=== PATIENT | female | born 1950 | race Caucasian/White ===

== ENCOUNTER 2017-03-02 12:42 | Observation (INO) ==
--- NOTE | 2017-03-02 12:59 | Emergency Department Note ---
Disposition Clinical Impression: Generalized seizure Disposition: Admitted As Inpatient Condition: Fair Referrals: Nick Celaya MD [Primary Care Provider] - Forms: ED Satisfaction Letter Time of Disposition: 15:22 (mirza sahu [facility] request of Dr celaya whom I spoke too) Seizure HPI - General Chief Complaint: ED Seizure Stated Complaint: seizure Time Seen by Provider: 03/02/17 12:44 Source: patient Mode of arrival: ambulatory Limitations: no limitations Nursing Notes Reviewed: Yes Vital Signs Reviewed: Yes - History of Present Illness HPI Narrative: History of a stroke last year who developed seizures post stroke who is currently under the management of Dr. 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 Description of Episode: loss of consciousness, tonic-clonic movement (very subtle) -: second(s) Witnessed: yes - by bystander, yes - by other (er staf) Associated trauma secondary to event: No Seizure History: known seizure disorder, compliant with medication Place: home Possible Precipitating Event: lack of sleep, stress Associated symptoms: Denies: chest pain, confusion, cough, diaphoresis, fever/ chills, loss of appetite, malaise, rash, shortness of breath, syncope, weakness Pain Severity: mild Pain Scale: 1 Pain Description: dull Treatments prior to arrival: none - Related Data Home Medications Medication Instructions Recorded Confirmed Albuterol Sulfate [Proair 2 puff IH Q4H PRN 10/24/15 10/13/16 Respiclick] Cholecalciferol (Vitamin D3) 1,000 unit PO DAILY 10/24/15 10/13/16 [Vitamin D3] Insulin ASPART [Novolog Flexpen] 5 unit SQ BID 10/24/15 10/13/16 Insulin DETEMIR [Levemir Flextouch] 28 unit SQ BID 10/24/15 10/13/16 Oxaprozin [Daypro] 600 mg PO DAILY 10/24/15 10/13/16 Sennosides [Senna] 8.6 mg PO DAILY 10/24/15 10/13/16 BuPROPion XL (24 HR) [Wellbutrin 300 mg PO DAILY 01/26/16 10/13/16 XL] Losartan/Hydrochlorothiazide 1 each PO DAILY 01/26/16 10/13/16 [Hyzaar 100-25 Tablet] Tizanidine HCl 4 mg PO HS 01/26/16 10/13/16 Atorvastatin [Lipitor] 40 mg PO HS 10/13/16 10/13/16 Famotidine [Pepcid] 20 mg PO DAILY 10/13/16 10/13/16 Gabapentin [Neurontin] 400 mg PO TID 10/13/16 10/13/16 Insulin ASPART [Novolog Flexpen] 12 - 18 unit SQ QPM 10/13/16 10/13/16 Linagliptin [Tradjenta] 5 mg PO DAILY 10/13/16 10/13/16 Meloxicam [Meloxicam] 15 mg PO DAILY 10/13/16 10/13/16 Oxybutynin [Ditropan] 5 mg PO BID 10/13/16 10/13/16 Tamsulosin HCl [Flomax] 0.4 mg PO DAILY 10/13/16 10/13/16 LevETIRAcetam [Keppra] 500 mg PO BID 03/02/17 03/02/17 Warfarin [Coumadin] 2 mg PO AD 03/02/17 03/02/17 Previous Rx's Medication Instructions Recorded diazePAM [Valium] 5 mg PO BID #10 tablet 03/10/16 Allergies Allergy/AdvReac Type Severity Reaction Status Date / Time Androgenic Anabolic Steroid Allergy Hives Verified 10/13/16 07:59 aripiprazole [From Abilify] Allergy Hives Verified 10/13/16 07:59 azithromycin [From Zithromax] Allergy Hives Verified 10/13/16 07:59 bisacodyl Allergy Hives Verified 10/13/16 07:59 cephalexin Allergy Hives Verified 10/13/16 07:59 ciprofloxacin [From Cipro] Allergy Hives Verified 10/13/16 07:59 codeine Allergy Hives Verified 10/13/16 07:59 mirtazapine [From Remeron] Allergy Hives Verified 10/13/16 07:59 nitrofurantoin Allergy Hives Verified 10/13/16 07:59 [From Macrobid] penicillamine Allergy Hives Verified 10/13/16 07:59 propranolol [From Inderal LA] Allergy Hives Verified 10/13/16 07:59 Sulfa (Sulfonamide Allergy Hives Verified 10/13/16 07:59 Antibiotics) tramadol [From Ultram] Allergy Hives Verified 10/13/16 07:59 trimethoprim Allergy Hives Verified 10/13/16 07:59 All systems ED: reviewed and negative except as stated. Review of Systems: As Per HPI Constitutional: Reports: weakness. Denies: fever, chills Eyes: Denies: eye pain, eye discharge ENT ED: Denies: ear pain, throat pain, dental pain Cardiovascular: Denies: chest pain, palpitations Respiratory: Denies: cough, dyspnea, wheezes Gastrointestinal: Denies: abdominal pain Genitourinary: Denies: urgency, dysuria Musculoskeletal: Denies: back pain, neck pain Integumentary: Denies: rash, abrasion, lesions Neurological: Reports: headache, confusion. Denies: weakness, numbness Psychiatric: Denies: anxiety, depression Endocrine: Denies: fatigue Hematological/Lymphatic: Denies: easy bleeding Past Medical History - Past Medical History Attestation: Yes The following information was validated with the patient. 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 - Social History Smoking Status: Never smoker Smokeless Tobacco Status: No Alcohol use: Reports: none Drug use: Reports: none Physical Exam - General Limitations: no limitations General appearance: alert, in no apparent distress, lethargic - Head Head exam: atraumatic, normocephalic, normal inspection - Eye Eye exam: Present: normal appearance, PERRL, EOMI - ENT ENT exam: normal exam, normal oropharynx, mucous membranes moist, normal external ear exam - Neck Neck exam: Present: normal inspection, full ROM, trachea midline - Chest Chest inspection: Present: normal inspection, symmetric chest wall rise - Respiratory Respiratory exam: Present: normal lung sounds bilaterally - Cardiovascular Cardiovascular exam: Present: regular rate, normal rhythm, normal heart sounds - Abdominal Exam Abdominal exam: Present: soft, Non-Tender, normal bowel sounds. Absent: mass, pulsatile mass - Extremities Exam Extremities exam: Present: normal inspection, full ROM, normal capillary refill. Absent: tenderness, pedal edema, joint swelling, calf tenderness - Expanded Lower Extremity Exam Neurovascular/Tendon exam: Present: normal capillary refill, normal fine/light touch Gait: not tested/not observed - Back Exam Back exam: Present: normal inspection, full ROM. Absent: muscle spasm - Neurological Exam Neurological exam: Present: alert, oriented X3, CN II-XII intact - Psychiatric Psychiatric exam: Present: normal affect, normal mood - Skin Skin exam: Present: warm, dry, intact, normal color Course Course Narrative: Patient seen and examined while waiting for laboratory drawl to be done patient has a fine seizure-like activity with some flank tremoring. Extremities patient was postictal for about patient resting comfortably at this time - Reevaluation(s) Reevaluation #1: She has been resting comfortably since her one little seizure activity here in the ER after all results were obtained I spoke with Dr. Celaya he has asked that we keep her overnight make a modification within her medications patient be admitted transferred to [facility] patient stable at time of transfer Vital Signs Temperature 97.9 F 03/02/17 12:44 Pulse Rate 66 03/02/17 12:44 Respiratory Rate 16 03/02/17 12:44 Blood Pressure 139/71 03/02/17 12:44 O2 Sat by Pulse Oximetry 99 03/02/17 12:44 Temperature 97.9 F 03/02/17 12:44 Pulse Rate 73 03/02/17 15:17 Respiratory Rate 18 03/02/17 15:17 Blood Pressure 164/69 03/02/17 15:17 O2 Sat by Pulse Oximetry 95 03/02/17 15:17 Oxygen Delivery Oxygen Delivery Room Air Seizure - Differential Diagnosis Likely: generalized seizure - Medical Records Medical records reviewed: Yes I reviewed the patient's medical records. - Lab Data Lab results reviewed: Yes I reviewed the patient's lab results. Result diagrams: 03/02/17 13:30 03/02/17 13:30 Lab Results 03/02/17 03/02/17 03/02/17 Range/Units 13:30 13:30 13:30 WBC 7.8 (4.3-11.1) K/mcL RBC 5.14 H (3.82-4.97) M/mcL Hgb 14.2 (11.5-15.4) g/dL Hct 42.6 (35.3-44.9) % MCV 82.9 L (83.0-100.0) fL MCH 27.6 L (28.0-33.3) pg MCHC 33.3 (31.6-35.5) g/dL RDW 13.0 (11.5-14.5) % Plt Count 247 (140-400) K/mcL MPV 10.5 (9.4-12.4) fL Immature Gran % 0.1 (0-4) % Seg Neutrophils % 68.4 % Lymphocytes % 23.8 % Monocytes % 5.4 % Eosinophils % 1.7 % Basophils % 0.6 % Neutrophils # 5.3 (1.6-8.9) K/mcL Lymphocytes # 1.9 (0.6-4.6) K/mcL Monocytes # 0.4 (0.0-1.3) K/mcL Eosinophils # 0.1 (0.0-0.6) K/mcL Basophils # 0.1 (0.0-0.2) K/mcL PT 32.5 H (9.4-12.1) Seconds INR 2.9 APTT 45.8 H (26.0-36.0) Seconds Sodium 142 (136-145) mEq/L Potassium 3.6 (3.5-4.5) mEq/L Chloride 103 (98-109) mEq/L Carbon Dioxide 26 (19-29) mEq/L BUN 14 (7-20) mg/dL Creatinine 0.73 (0.57-1.11) mg/dL Est GFR ( Amer) > 60 (> 60) Est GFR (Non-Af Amer) > 60 (> 60) BUN/Creatinine Ratio 19 (6-26) Glucose 151 H (70-99) mg/dL Calculated Osmolality 297 (280-300) Calcium 9.7 (8.6-10.8) mg/dL Troponin I (0-0.03) ng/mL TSH 0.560 (0.350-4.840) mcIU/mL Urine Color (Yellow) Urine Clarity (Clear) Urine pH (5.0-8.0) pH Units Ur Specific [place] (1.010-1.025) Urine Protein (Neg-Trace) mg/dL Urine Glucose (UA) (Normal) mg/dL Urine Ketones (Negative) mg/dL Urine Blood (Negative) Urine Nitrite (Negative) Urine Bilirubin (Negative) Urine Urobilinogen (Normal) mg/dL Ur Leukocyte Esterase (Negative) Urine Microscopic WBC (0-3) per hpf Ur Squamous Epith Cells (None-Few) per lpf Urine Bacteria (None-Few) per hpf Urine Mucus (Few) Ur Culture Indicated? (NO) 03/02/17 03/02/17 Range/Units 13:30 13:45 WBC (4.3-11.1) K/mcL RBC (3.82-4.97) M/mcL Hgb (11.5-15.4) g/dL Hct (35.3-44.9) % MCV (83.0-100.0) fL MCH (28.0-33.3) pg MCHC (31.6-35.5) g/dL RDW (11.5-14.5) % Plt Count (140-400) K/mcL MPV (9.4-12.4) fL Immature Gran % (0-4) % Seg Neutrophils % % Lymphocytes % % Monocytes % % Eosinophils % % Basophils % % Neutrophils # (1.6-8.9) K/mcL Lymphocytes # (0.6-4.6) K/mcL Monocytes # (0.0-1.3) K/mcL Eosinophils # (0.0-0.6) K/mcL Basophils # (0.0-0.2) K/mcL PT (9.4-12.1) Seconds INR APTT (26.0-36.0) Seconds Sodium (136-145) mEq/L Potassium (3.5-4.5) mEq/L Chloride (98-109) mEq/L Carbon Dioxide (19-29) mEq/L BUN (7-20) mg/dL Creatinine (0.57-1.11) mg/dL Est GFR ( Amer) (> 60) Est GFR (Non-Af Amer) (> 60) BUN/Creatinine Ratio (6-26) Glucose (70-99) mg/dL Calculated Osmolality (280-300) Calcium (8.6-10.8) mg/dL Troponin I 0.00 (0-0.03) ng/mL TSH (0.350-4.840) mcIU/mL Urine Color Yellow (Yellow) Urine Clarity Clear (Clear) Urine pH 7.0 (5.0-8.0) pH Units Ur Specific [place] 1.020 (1.010-1.025) Urine Protein 30 H (Neg-Trace) mg/dL Urine Glucose (UA) Normal (Normal) mg/dL Urine Ketones Negative (Negative) mg/dL Urine Blood Negative (Negative) Urine Nitrite Negative (Negative) Urine Bilirubin Negative (Negative) Urine Urobilinogen Normal (Normal) mg/dL Ur Leukocyte Esterase Negative (Negative) Urine Microscopic WBC 0-3 (0-3) per hpf Ur Squamous Epith Cells Many H (None-Few) per lpf Urine Bacteria Few (None-Few) per hpf Urine Mucus Few (Few) Ur Culture Indicated? NO (NO) - Radiology Data Radiology results reviewed: Yes I reviewed the patient's radiology results. ITS Impressions Head CT 03/02/17 13:01 IMPRESSION: Remote infarct on the right with surrounding gliosis. Mild patchy small vessel ischemic changes bilaterally No acute abnormality otherwise D/ / Ethan Miller / Ethan Miller Interpreting Provider: Ethan Miller - EKG Data EKG attestation: Yes I reviewed and interpreted this EKG. EKG results narrative: Sinus rhythm first degree AV block rate 63 NV 226 QRS 77 QT 429 axis 20 Critical Care Time Critical Care Time: No
[2017-03-02 13:41] LABS: Basophils # 0.1 K/mcL (0.0-0.2); Basophils % 0.6 %; Eosinophils # 0.1 K/mcL (0.0-0.6); Eosinophils % 1.7 %; Hematocrit 42.6 % (35.3-44.9); Hemoglobin 14.2 g/dL (11.5-15.4); Immature Granulocytes % 0.1 % (0-4); Lymphocytes # 1.9 K/mcL (0.6-4.6); Lymphocytes % 23.8 %; Mean Corpuscular HGB Conc 33.3 g/dL (31.6-35.5); Mean Corpuscular Hemoglobin 27.6 pg (28.0-33.3); Mean Corpuscular Volume 82.9 fL (83.0-100.0); Mean Platelet Volume 10.5 fL (9.4-12.4); Monocytes # 0.4 K/mcL (0.0-1.3); Monocytes % 5.4 %; Neutrophils # 5.3 K/mcL (1.6-8.9); Platelet Count 247 K/mcL (140-400); Red Blood Count 5.14 M/mcL (3.82-4.97); Segmented Neutrophils % 68.4 %
[2017-03-02 13:47] LABS: INR 2.9; Prothrombin Time 32.5 Seconds (9.4-12.1)
[2017-03-02 13:50] LABS: Activated Partial Thrombo Time 45.8 Seconds (26.0-36.0)
[2017-03-02 13:57] LABS: BUN/Creatinine Ratio 19 (6-26); Blood Urea Nitrogen 14 mg/dL (7-20); Calcium 9.7 mg/dL (8.6-10.8); Carbon Dioxide 26 mEq/L (19-29); Chloride 103 mEq/L (98-109); Glucose 151 mg/dL (70-99); Osmolality,Calculated 297 (280-300); Potassium 3.6 mEq/L (3.5-4.5); Sodium 142 mEq/L (136-145); eGFR For African Americans > 60 (> 60); eGFR For Non-African Americans > 60 (> 60)
[2017-03-02 14:05] LABS: Bilirubin,Urine Negative (Negative); Blood,Urine Negative (Negative); Clarity,Urine Clear (Clear); Color,Urine Yellow (Yellow); Glucose,Urine (UA) Normal (Normal); Ketones,Urine Negative (Negative); Leukocyte Esterase,Urine Negative (Negative); Nitrite,Urine Negative (Negative); Protein,Urine 30 mg/dL (Neg-Trace); Urobilinogen,Urine Normal (Normal)
[2017-03-02 14:15] LABS: Bacteria,Urine Few per hpf (None-Few); Mucus,Urine Few (Few); Squamous Epithelial Cell,Urine Many per lpf (None-Few); WBC,Urine 0-3 per hpf (0-3)
[2017-03-02] MEDS ORDERED: levETIRAcetam 250 MG TABLET PO STA (15:25)
[2017-03-02] MEDS ORDERED: Dextrose Gel 15 GM PO PRN ×2 (17:33)
[2017-03-02] MEDS ORDERED: Ondansetron ODT 4 MG TAB.RAPDIS SL PRN (17:33)
[2017-03-02] MEDS ORDERED: Ibuprofen 400 MG TABLET PO PRN (17:33)
[2017-03-02] MEDS ORDERED: Acetaminophen 325 MG TABLET PO PRN (17:33)
[2017-03-02] MEDS ORDERED: levETIRAcetam 250 MG TABLET PO SCH (17:33)
[2017-03-02] MEDS ORDERED: *HR* Dextrose 50 % in Water (Syg) 50 ML SYRINGE IVP PRN (17:33)
[2017-03-02] MEDS ORDERED: Naloxone 0.4 MG/ML INJ IVP PRN (17:33)
[2017-03-02] MEDS ORDERED: D5% in Water 1,000 ML IVC PRN (17:33)
[2017-03-02] MEDS ORDERED: *HR* Warfarin 2 MG TABLET PO ONE (18:24)
[2017-03-02] MEDS: *HR* Warfarin 5 MG TABLET PO SCH ×2 (18:26→19:01)
[2017-03-02] MEDS: Insulin LISPRO 300 UNITS/3 ML VIAL SQ SCH (19:00)
[2017-03-02] MEDS ORDERED: tiZANidine 4 MG TABLET PO SCH (21:00)
[2017-03-02] MEDS ORDERED: Insulin LISPRO 300 UNITS/3 ML VIAL SQ SCH ×2 (21:00)
[2017-03-02] MEDS ORDERED: INSULIN DETEMIR 28 UNIT SQ SCH (21:00)
[2017-03-02] MEDS: levETIRAcetam 250 MG TABLET PO SCH (21:16)
[2017-03-02] MEDS: diazePAM 5 MG TABLET PO SCH (21:16)
[2017-03-02] MEDS: Insulin DETEMIR 100 UNIT/ML X5UNITS SQ SCH (21:18)
[2017-03-02] MEDS: Gabapentin 400 MG CAPSULE PO SCH (21:20)
[2017-03-03] MEDS: levETIRAcetam 250 MG TABLET PO SCH (05:54)
[2017-03-03 06:11] LABS: Basophils # 0.1 K/mcL (0.0-0.2); Basophils % 0.8 %; Eosinophils # 0.2 K/mcL (0.0-0.6); Eosinophils % 3.7 %; Hematocrit 41.8 % (35.3-44.9); Hemoglobin 13.7 g/dL (11.5-15.4); Immature Granulocytes % 0.3 % (0-4); Lymphocytes # 2.4 K/mcL (0.6-4.6); Lymphocytes % 39.8 %; Mean Corpuscular HGB Conc 32.8 g/dL (31.6-35.5); Mean Corpuscular Hemoglobin 27.5 pg (28.0-33.3); Mean Corpuscular Volume 83.8 fL (83.0-100.0); Mean Platelet Volume 10.6 fL (9.4-12.4); Monocytes # 0.5 K/mcL (0.0-1.3); Monocytes % 8.1 %; Neutrophils # 2.8 K/mcL (1.6-8.9); Platelet Count 228 K/mcL (140-400); Red Blood Count 4.99 M/mcL (3.82-4.97); Red Cell Distribution Width 13.2 % (11.5-14.5); Segmented Neutrophils % 47.3 %
[2017-03-03 06:27] LABS: BUN/Creatinine Ratio 23 (6-26); Blood Urea Nitrogen 16 mg/dL (7-20); Calcium 9.6 mg/dL (8.6-10.8); Carbon Dioxide 25 mEq/L (19-29); Chloride 107 mEq/L (98-109); Glucose 69 mg/dL (70-99); Osmolality,Calculated 298 (280-300); Potassium 3.6 mEq/L (3.5-4.5); Sodium 144 mEq/L (136-145); eGFR For African Americans > 60 (> 60); eGFR For Non-African Americans > 60 (> 60)
[2017-03-03] MEDS: Insulin LISPRO 300 UNITS/3 ML VIAL SQ SCH ×2 (07:35→12:26)
--- NOTE | 2017-03-03 08:08 | Electrocardiograph Report ---
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
[2017-03-03] MEDS ORDERED: Famotidine 20 MG TABLET PO SCH (09:00)
[2017-03-03] MEDS ORDERED: Sennosides 8.6 MG TABLET PO SCH (09:00)
[2017-03-03] MEDS ORDERED: Cholecalciferol (D-3) 1,000 UNIT TABLET PO SCH (09:00)
[2017-03-03] MEDS ORDERED: BuPROPion XL (24 HR) 150 MG TABLET PO SCH (09:00)
[2017-03-03] MEDS ORDERED: Losartan/HCTZ 50-12.5 TABLET PO SCH (09:00)
[2017-03-03] MEDS ORDERED: (Linagliptin [Tradjenta] 5 MG) PO SCH (09:00)
[2017-03-03] MEDS: Gabapentin 400 MG CAPSULE PO SCH (09:32)
[2017-03-03] MEDS: diazePAM 5 MG TABLET PO SCH (09:33)
[2017-03-03] MEDS: Insulin DETEMIR 100 UNIT/ML X5UNITS SQ SCH (09:43)
[2017-03-03 10:38] VITALS: BP 172/58
--- NOTE | 2017-03-03 11:39 | Internal Med History&Physical ---
Date of Encounter: 03/03/17 Time of Encounter: 11:05 Assessment and Plan (1) Seizures Current visit: Yes Status: Acute Her Keppra dose will be increased to 1000 milligrams twice a day. Internal Medicine - H&P: HPI Chief complaint: Seizures Admitted From: Home Plans for Post Hospital Care: Home History of present illness: Ms. Gamez is a 66 year old female who was brought emergency room by squad after home health personnel noted her to have had 2 seizures in the home. She states she felt she was going to have a seizure but was unable to catch herself from falling to the floor. There was no injury associated with the fall. There was no tonic-clonic movement noted. She was evaluated in emergency room and admitted to [facility] for ongoing care needs. She states she had a stroke 11/12/2016 and was transferred to [facility]. Following the stroke she developed seizures but was never told what type seizures. She was placed on Keppra by her PCP Dr. Andrews. She reports her last seizure was approximately 6 weeks ago. She reports having 2 additional previous strokes most recent one approximately 2004. The most recent stroke left her with short-term memory loss, left arm weakness, confusion and depression. Her neurologic history is pertinent also for diabetic peripheral neuropathy. Past Med Surg Social Fam HX - Past Medical History Medical history: arthritis, atrial fibrillation, cancer, COPD, coronary artery disease, CVA, diabetes, fibromyalgia, GERD, hyperlipidemia, hypertension, migraine, peripheral artery disease, RA, TIA Psychiatric history: anxiety, depression, panic disorder - Past Surgical History Surgical History: hysterectomy, orthopedic, other, other - Social History Smoking Status: Never smoker Smokeless Tobacco Status: No Alcohol use: none Drug use: none Internal Medicine - H&P: Meds Albuterol Sulfate [Proair Respiclick] 2 puff IH Q4H PRN 10/24/15 [History] Cholecalciferol (Vitamin D3) [Vitamin D3] 1,000 unit PO DAILY 10/24/15 [History] Insulin ASPART [Novolog Flexpen] 5 unit SQ BID 10/24/15 [History] Insulin DETEMIR [Levemir Flextouch] 28 unit SQ BID 10/24/15 [History] Oxaprozin [Daypro] 600 mg PO DAILY 10/24/15 [History] Sennosides [Senna] 8.6 mg PO DAILY 10/24/15 [History] BuPROPion XL (24 HR) [Wellbutrin XL] 300 mg PO DAILY 01/26/16 [History] Losartan/Hydrochlorothiazide [Hyzaar 100-25 Tablet] 1 each PO DAILY 01/26/16 [ History] Tizanidine HCl 4 mg PO HS 01/26/16 [History] diazePAM [Valium] 5 mg PO BID #10 tablet 03/10/16 [Rx] Atorvastatin [Lipitor] 40 mg PO HS 10/13/16 [History] Famotidine [Pepcid] 20 mg PO DAILY 10/13/16 [History] Gabapentin [Neurontin] 400 mg PO TID 10/13/16 [History] Insulin ASPART [Novolog Flexpen] 12 - 18 unit SQ QPM 10/13/16 [History] Linagliptin [Tradjenta] 5 mg PO DAILY 10/13/16 [History] Meloxicam [Meloxicam] 15 mg PO DAILY 10/13/16 [History] Oxybutynin [Ditropan] 5 mg PO BID 10/13/16 [History] Tamsulosin HCl [Flomax] 0.4 mg PO DAILY 10/13/16 [History] LevETIRAcetam [Keppra] 500 mg PO BID 03/02/17 [History] Warfarin [Coumadin] 2 mg PO AD 03/02/17 [History] 3 Allergy/AdvReac Type Severity Reaction Status Date / Time Androgenic Anabolic Steroid Allergy Hives Verified 10/13/16 07:59 aripiprazole [From Abilify] Allergy Hives Verified 10/13/16 07:59 azithromycin [From Zithromax] Allergy Hives Verified 10/13/16 07:59 bisacodyl Allergy Hives Verified 10/13/16 07:59 cephalexin Allergy Hives Verified 10/13/16 07:59 ciprofloxacin [From Cipro] Allergy Hives Verified 10/13/16 07:59 codeine Allergy Hives Verified 10/13/16 07:59 mirtazapine [From Remeron] Allergy Hives Verified 10/13/16 07:59 nitrofurantoin Allergy Hives Verified 10/13/16 07:59 [From Macrobid] penicillamine Allergy Hives Verified 10/13/16 07:59 propranolol [From Inderal LA] Allergy Hives Verified 10/13/16 07:59 Sulfa (Sulfonamide Allergy Hives Verified 10/13/16 07:59 Antibiotics) tramadol [From Ultram] Allergy Hives Verified 10/13/16 07:59 trimethoprim Allergy Hives Verified 10/13/16 07:59 All Systems PM: A 10-system review of systems was performed and is negative for pertinent findings except as documented above in the HPI. Review of systems: Gen.: Her weight has decreased from 81.647 kg August 2014 to 73.028 kg on admission now Cardiovascular: She has history of hypertension but no known [place] heart failure DVT or pulmonary embolus. She thinks she had an exercise stress test approximately 2004 which was unremarkable. She has had varicose vein stripping. Respiratory: She smoked from age [age] a total of 46 years up to one and half packs per day. She thinks she had PFTs several years ago which were negative. She does not use home oxygen. GI: She has GERD and history of NAFLD. She had colonoscopy 2016 to follow up on a previous one which showed polyps. She had diverticular disease but no new polyps and was told she did not need another colonoscopy for 10 years. She denies disorders otherwise of her liver gallbladder or exocrine pancreas : She had left nephrectomy for renal cell cancer several years ago. She is presumed cancer free. She has OAB and occasional UTI. Neurologic: As per history of present illness Endocrine: She was diagnosed with DM 2 at age 43. She has hyperlipidemia but no known thyroid disease Hematology/oncology: She had left kidney cancer with nephrectomy as per above. She had cervical cancer with curative hysterectomy in the past. She denies other internal malignancies or blood disorders Psychiatric: She has anxiety and depression Musk skeletal: She has rheumatoid arthritis. She has spinal fusion surgery 2006. She has had bilateral carpal tunnel surgery and right total shoulder replacement. - Constitutional Vitals: Temp Pulse Resp BP Pulse Ox 98.1 F 81 16 172/58 95 03/03/17 10:36 03/03/17 10:36 03/03/17 10:36 03/03/17 10:36 03/03/17 10:36 Exam: Gen.: She is a well-developed well-nourished female lying in bed who appears in no acute distress. HEENT: Head is atraumatic and normocephalic. Eyes: EOMI. There is no scleral icterus. Mouth: Mucosa is moist. Neck: Supple and nontender. There is no thyromegaly or adenopathy noted. Heart: Regular without murmurs gallops or ectopics Lungs: No wheezes or crackles are heard. Abdomen: Soft and nontender. No masses or guarding are noted. Extremities: There is no cyanosis edema or clubbing noted. Dorsalis pedis and posttibial pulses are 1-2 over 2 bilaterally. She has enlargement of the MCP joints bilaterally with ulnar deviation of the fingers. Neurologic: Mental status: She is talkative and seems to be a reliable historian. Cranial nerves: Smile is symmetric. Forehead wrinkles bilaterally. Tongue protrudes midline. EOMI. Motor: There is no pronator drift. Cerebellar: Finger to nose is intact bilaterally. Skin: Warm and dry. She has some petechia on the dorsum of the hands and wrists bilaterally more on the right and the left. Internal Med - H&P Results - Labs CBC & Chem 7: 03/03/17 05:46 03/03/17 05:46 Labs: Short CBC 03/03/17 Range/Units 05:46 WBC 6.0 (4.3-11.1) K/mcL Hgb 13.7 (11.5-15.4) g/dL Hct 41.8 (35.3-44.9) % Plt Count 228 (140-400) K/mcL Neutrophils # 2.8 (1.6-8.9) K/mcL BMP 03/03/17 05:46 Sodium 144 Potassium 3.6 Chloride 107 Carbon Dioxide 25 BUN 16 Creatinine 0.69 Glucose 69 L Calcium 9.6
--- NOTE | 2017-03-03 11:55 | Discharge Summary ---
Date of Encounter: 03/03/17 Time of Encounter: 11:05 - Discharge Diagnosis (1) Seizures Priority: Primary Status: Acute - Discharge Medications Prescriptions: LevETIRAcetam [Keppra] 1,000 mg PO BID #60 tablet Home Medications: Albuterol Sulfate [Proair Respiclick] 2 puff IH Q4H PRN 10/24/15 [History] Cholecalciferol (Vitamin D3) [Vitamin D3] 1,000 unit PO DAILY 10/24/15 [History] Insulin ASPART [Novolog Flexpen] 5 unit SQ BID 10/24/15 [History] Insulin DETEMIR [Levemir Flextouch] 28 unit SQ BID 10/24/15 [History] Oxaprozin [Daypro] 600 mg PO DAILY 10/24/15 [History] Sennosides [Senna] 8.6 mg PO DAILY 10/24/15 [History] BuPROPion XL (24 HR) [Wellbutrin Xl] 300 mg PO DAILY 01/26/16 [History] Losartan/Hydrochlorothiazide [Hyzaar 100-25 Tablet] 1 each PO DAILY 01/26/16 [ History] Tizanidine HCl 4 mg PO HS 01/26/16 [History] diazePAM [Valium] 5 mg PO BID #10 tablet 03/10/16 [Rx] Atorvastatin [Lipitor] 40 mg PO HS 10/13/16 [History] Famotidine [Pepcid] 20 mg PO DAILY 10/13/16 [History] Gabapentin [Neurontin] 400 mg PO TID 10/13/16 [History] Insulin ASPART [Novolog Flexpen] 12 - 18 unit SQ QPM 10/13/16 [History] Linagliptin [Tradjenta] 5 mg PO DAILY 10/13/16 [History] Meloxicam 15 mg PO DAILY 10/13/16 [History] Oxybutynin [Ditropan] 5 mg PO BID 10/13/16 [History] Tamsulosin HCl [Flomax] 0.4 mg PO DAILY 10/13/16 [History] Warfarin [Coumadin] 2 mg PO AD 03/02/17 [History] LevETIRAcetam [Keppra] 1,000 mg PO BID #60 tablet 03/03/17 [Rx] Allergies/Adverse Reactions: 3 Allergy/AdvReac Type Severity Reaction Status Date / Time Androgenic Anabolic Steroid Allergy Hives Verified 10/13/16 07:59 aripiprazole [From Abilify] Allergy Hives Verified 10/13/16 07:59 azithromycin [From Zithromax] Allergy Hives Verified 10/13/16 07:59 bisacodyl Allergy Hives Verified 10/13/16 07:59 cephalexin Allergy Hives Verified 10/13/16 07:59 ciprofloxacin [From Cipro] Allergy Hives Verified 10/13/16 07:59 codeine Allergy Hives Verified 10/13/16 07:59 mirtazapine [From Remeron] Allergy Hives Verified 10/13/16 07:59 nitrofurantoin Allergy Hives Verified 10/13/16 07:59 [From Macrobid] penicillamine Allergy Hives Verified 10/13/16 07:59 propranolol [From Inderal LA] Allergy Hives Verified 10/13/16 07:59 Sulfa (Sulfonamide Allergy Hives Verified 10/13/16 07:59 Antibiotics) tramadol [From Ultram] Allergy Hives Verified 10/13/16 07:59 trimethoprim Allergy Hives Verified 10/13/16 07:59 Date of admission: 03/02/17 16:32 Primary care physician: Nick Andrews MD - Patient Status Disposition: Home, Self-Care Condition: Fair Functional capacity at discharge: independent ambulation Overall status at discharge: patient is progressing back to baseline - Discharge Instructions Follow Up With: Nick Andrews MD [Primary Care Provider] - 1 week - Diet and Activity Activity: resume usual activities as tolerated Diet: advance to your usual diet Hospital course: Ms. Gamez is a 66 year old female who was brought emergency room by [facility] after home health personnel noted her to have had 2 seizures in the home. She states she felt she was going to have a seizure but was unable to catch herself from falling to the floor. There was no injury associated with the fall. There was no tonic-clonic movement noted. She was evaluated in emergency room and admitted to [facility] for ongoing care needs. Initial orders were written by the emergency room physician. I saw her on March 03 and performed the history and physical. Her gabapentin was continued. Her Keppra dose will be increased to 1000 milligrams twice a day. She had no further seizures and I felt she was stable for discharge home. She will follow with her PCP Dr. Andrews within 1 week. She can discuss with him referral to a neurologist. He can determine if the Wellbutrin should be continued since it increases risk of seizures. - Time Spent with Patient Total time spent providing and/or coordinating discharge services: - Constitutional Vitals: Temp Pulse Resp BP Pulse Ox 98.1 F 81 16 172/58 95 03/03/17 10:36 03/03/17 10:36 03/03/17 10:36 03/03/17 10:36 03/03/17 10:36
== END 2017-03-03 13:34 | disposition home or self-care (01) ==
LOC: EMEROOPIK 12:42 → INPPIK 12:42
PROVIDERS: ADMIT Internal Medicine; ATTEND Internal Medicine

== ENCOUNTER 2017-04-01 15:00 | Inpatient (IN) ==
[2017-04-01] MEDS ORDERED: Dextrose Gel 15 GM PO PRN ×2 (17:16)
[2017-04-01] MEDS ORDERED: D5% in Water 1,000 ML IVC PRN (17:16)
[2017-04-01] MEDS ORDERED: *HR* Dextrose 50 % in Water (Syg) 50 ML SYRINGE IVP PRN (17:16)
[2017-04-01] MEDS: *HR* Warfarin 5 MG TABLET PO SCH (17:58)
[2017-04-01] MEDS: Cortisporin *EAR*Susp 10 ML BOTTLE LEFT EAR SCH ×2 (17:59→20:28)
[2017-04-01] MEDS: diazePAM 5 MG TABLET PO SCH (20:27)
[2017-04-01] MEDS: levETIRAcetam 250 MG TABLET PO SCH (20:27)
[2017-04-01] MEDS: tiZANidine 4 MG TABLET PO SCH (20:28)
[2017-04-01] MEDS: Insulin LISPRO 300 UNITS/3 ML VIAL SQ SCH (20:35)
[2017-04-02 05:24] LABS: Basophils % 0.6 %; Eosinophils # 0.3 K/mcL (0.0-0.6); Eosinophils % 5.1 %; Hematocrit 39.5 % (35.3-44.9); Hemoglobin 12.8 g/dL (11.5-15.4); Immature Granulocytes % 0.3 % (0-4); Lymphocytes # 1.8 K/mcL (0.6-4.6); Lymphocytes % 29.4 %; Mean Corpuscular HGB Conc 32.4 g/dL (31.6-35.5); Mean Corpuscular Hemoglobin 27.4 pg (28.0-33.3); Mean Corpuscular Volume 84.4 fL (83.0-100.0); Monocytes # 0.5 K/mcL (0.0-1.3); Monocytes % 8.4 %; Neutrophils # 3.5 K/mcL (1.6-8.9); Platelet Count 261 K/mcL (140-400); Red Blood Count 4.68 M/mcL (3.82-4.97); Red Cell Distribution Width 13.2 % (11.5-14.5); Segmented Neutrophils % 56.2 %
[2017-04-02 05:28] LABS: INR 2.9; Prothrombin Time 32.4 Seconds (9.4-12.1)
[2017-04-02 05:31] LABS: Activated Partial Thrombo Time 42.9 Seconds (26.0-36.0)
[2017-04-02 05:42] LABS: BUN/Creatinine Ratio 38 (6-26); Blood Urea Nitrogen 30 mg/dL (7-20); Calcium 9.5 mg/dL (8.6-10.8); Carbon Dioxide 27 mEq/L (19-29); Chloride 104 mEq/L (98-109); Glucose 169 mg/dL (70-99); Osmolality,Calculated 302 (280-300); Potassium 4.2 mEq/L (3.5-4.5); Sodium 141 mEq/L (136-145); eGFR For African Americans > 60 (> 60); eGFR For Non-African Americans > 60 (> 60)
[2017-04-02] MEDS: Insulin LISPRO 300 UNITS/3 ML VIAL SQ SCH ×4 (07:50→19:50)
[2017-04-02] MEDS ORDERED: Diclofenac Sodium (24 HR) 100 MG TABLET PO SCH (09:00)
[2017-04-02] MEDS ORDERED: BuPROPion XL (24 HR) 150 MG TABLET PO SCH (09:00)
[2017-04-02] MEDS ORDERED: INSULIN DEGLUDEC 1 UNIT SQ SCH (09:00)
[2017-04-02] MEDS ORDERED: amLODIPine 5 MG TABLET PO SCH (09:00)
[2017-04-02] MEDS ORDERED: Losartan/HCTZ 50-12.5 TABLET PO SCH (09:00)
[2017-04-02] MEDS: Cortisporin *EAR*Susp 10 ML BOTTLE LEFT EAR SCH ×4 (09:15→19:59)
[2017-04-02] MEDS: levETIRAcetam 250 MG TABLET PO SCH ×2 (09:16→19:58)
[2017-04-02] MEDS: Venlafaxine XR (24 HR) 37.5 MG CAP.ER.24H PO SCH (09:18)
[2017-04-02] MEDS: Aspirin Enteric Coated 81 MG Tablet PO SCH (09:19)
[2017-04-02] MEDS: Sennosides 8.6 MG TABLET PO SCH (09:20)
[2017-04-02] MEDS: Cholecalciferol (D-3) 1,000 UNIT TABLET PO SCH (09:20)
[2017-04-02] MEDS: amLODIPine 5 MG TABLET PO SCH (09:20)
[2017-04-02] MEDS: diazePAM 5 MG TABLET PO SCH ×2 (09:21→19:58)
[2017-04-02] MEDS: Famotidine 20 MG TABLET PO SCH (09:22)
[2017-04-02] MEDS: (Linagliptin [Tradjenta] 5 MG) PO SCH (09:22)
--- NOTE | 2017-04-02 15:50 | Internal Med History&Physical ---
Date of Encounter: 04/02/17 Time of Encounter: 15:25 Assessment and Plan (1) Seizures Current visit: No Status: Acute Continue Keppra and Valium. Will wean off bupropion to avoid worsening seizures. (2) CVA (cerebral vascular accident) Current visit: No Status: Acute Continue aspirin with Coumadin and therapy intervention. Qualifiers: CVA mechanism: embolism Precerebral and cerebral artery: middle cerebral artery Laterality of affected vessel: right Qualified Code(s): I63.411 - Cerebral infarction due to embolism of right middle cerebral artery (3) Azotemia Current visit: Yes Status: Acute We will discontinue Hyzaar and start losartan at higher dose. We will discontinue NSAIDs. Continue Norvasc. (4) Hypertension Current visit: No Status: Acute Continue Norvasc, discontinue losartan, and increase Hyzaar dose. Qualifiers: Hypertension type: essential hypertension Qualified Code(s): I10 - Essential (primary) hypertension (5) Atrial fibrillation Current visit: No Status: Chronic Continue Coumadin and monitor pro time Qualifiers: Atrial fibrillation type: paroxysmal Qualified Code(s): I48.0 - Paroxysmal atrial fibrillation Internal Medicine - H&P: HPI Chief complaint: Stroke Admitted From: Hospital to Hospital Transfer Plans for Post Hospital Care: Home History of present illness: Ms. Gamez is a 66 year old female who was hospitalized at [facility] March 29 after presenting with left side weakness, confusion and near aphasia. MRI of brain showed old infarct right parietal lobe encephalomalacia, laminar necrosis, and glucoses. There was question of tiny foci of acute to subacute infarct in the background of old infarct and right MCA territory. She was started on aspirin 81 mg daily. She continued on Coumadin previously prescribed for paroxysmal defibrillation. Carotid Doppler study showed left proximal ICA with 40-59% stenosis. Echocardiogram report showed LVEF of 60-65% with mild concentric LVH and mild diastolic dysfunction. No thrombus was identified. (Information on echo obtained from discharge summary since no echo report available in patient's medical record.) She made satisfactory progress and was transferred to [facility] swing bed for ongoing therapy needs April 02. She reports having 2 previous strokes with the most recent one approximately 2004. It resulted in short-term memory loss, left arm weakness, confusion, and depression. She was hospitalized at [facility] approximately one month ago with recurrent seizures. Her Keppra dose was increased to 1000 milligrams twice a day from previous dose of 500 mg twice a day. She reports she has had 3-[address] [facility] discharge. She also has diabetic peripheral neuropathy. Past Med Surg Social Fam HX - Past Medical History Medical history: arthritis, atrial fibrillation, cancer, COPD, coronary artery disease, CVA, diabetes, fibromyalgia, GERD, hyperlipidemia, hypertension, migraine, peripheral artery disease, RA, seizures, TIA Psychiatric history: anxiety, depression, panic disorder - Past Surgical History Surgical History: hysterectomy, orthopedic, other, other - Social History Smoking Status: Former smoker Smokeless Tobacco Status: No Alcohol use: none Drug use: none - Family History Father Family Member Ethnicity: Non- Living Status: Hx Family Cardiac Disorders: Yes (OR, CHF, CAD, Stroke) Mother Family Member Ethnicity: Non- Living Status: Brother Family Member Ethnicity: Non- Living Status: Hx Family Cardiac Disorders: Yes (CHF) Hx Family Endocrine Disorder: Yes (DM) Sister Family Member Ethnicity: Non- Living Status: Grandmother Family Member Ethnicity: Non- Living Status: Hx Family Cardiac Disorders: Yes (CAD) Hx Family Cancer: Yes (Colon) Internal Medicine - H&P: Meds Albuterol Sulfate [Proair Respiclick] 2 puff IH Q4H PRN 10/24/15 [History] Cholecalciferol (Vitamin D3) [Vitamin D3] 1,000 unit PO DAILY 10/24/15 [History] Oxaprozin [Daypro] 600 mg PO DAILY 10/24/15 [History] Sennosides [Senna] 8.6 mg PO DAILY 10/24/15 [History] BuPROPion XL (24 HR) [Wellbutrin Xl] 300 mg PO DAILY 01/26/16 [History] Losartan/Hydrochlorothiazide [Hyzaar 100-25 Tablet] 1 each PO DAILY 01/26/16 [ History] Tizanidine HCl 4 mg PO HS 01/26/16 [History] diazePAM [Valium] 5 mg PO BID #10 tablet 03/10/16 [Rx] Atorvastatin [Lipitor] 40 mg PO HS 10/13/16 [History] Famotidine [Pepcid] 20 mg PO DAILY 10/13/16 [History] Linagliptin [Tradjenta] 5 mg PO DAILY 10/13/16 [History] Oxybutynin [Ditropan] 5 mg PO BID 10/13/16 [History] Tamsulosin HCl [Flomax] 0.4 mg PO DAILY 10/13/16 [History] LevETIRAcetam [Keppra] 1,000 mg PO BID #60 tablet 03/03/17 [Rx] Amlodipine Besylate 10 mg PO DAILY 03/29/17 [History] Insulin Degludec [Tresiba Flextouch U-100] 0 unit SQ DAILY 03/29/17 [History] Venlafaxine XR (24 HR) [Effexor XR] 75 mg PO DAILY 03/29/17 [History] Warfarin [Coumadin] 10 mg PO SUTUTHSA 03/29/17 [History] Warfarin [Coumadin] 12.5 mg PO MOWEFR 03/29/17 [History] Acetaminophen [Tylenol] 650 mg PO Q6HR PRN tablet 04/01/17 [Rx] Aspirin Enteric Coated [Aspirin EC] 81 mg PO DAILY tablet. 04/01/17 [Rx] Docusate [Colace] 100 mg PO BID PRN capsule 04/01/17 [Rx] Shahram/Poly/HC *EAR* SUSP [Cortisporin *EAR* Susp] 2 drop LEFT EAR QID bottle [Rx] amLODIPine [Norvasc] 10 mg PO DAILY tablet 04/01/17 [Rx] 3 Allergy/AdvReac Type Severity Reaction Status Date / Time Androgenic Anabolic Steroid Allergy Hives Verified 10/13/16 07:59 aripiprazole [From Abilify] Allergy Hives Verified 10/13/16 07:59 azithromycin [From Zithromax] Allergy Hives Verified 10/13/16 07:59 bisacodyl Allergy Hives Verified 10/13/16 07:59 cephalexin Allergy Hives Verified 10/13/16 07:59 ciprofloxacin [From Cipro] Allergy Hives Verified 10/13/16 07:59 codeine Allergy Hives Verified 10/13/16 07:59 mirtazapine [From Remeron] Allergy Hives Verified 10/13/16 07:59 nitrofurantoin Allergy Hives Verified 10/13/16 07:59 [From Macrobid] penicillamine Allergy Hives Verified 10/13/16 07:59 propranolol [From Inderal LA] Allergy Hives Verified 10/13/16 07:59 Sulfa (Sulfonamide Allergy Hives Verified 10/13/16 07:59 Antibiotics) tramadol [From Ultram] Allergy Hives Verified 10/13/16 07:59 trimethoprim Allergy Hives Verified 10/13/16 07:59 All Systems PM: A 10-system review of systems was performed and is negative for pertinent findings except as documented above in the HPI. Review of systems: Review of systems from her February [address] [facility] hospitalization were reviewed and revised as below. Gen.: Her weight has decreased from 81.647 kg August 2014 to 73.936 kg on admission now Cardiovascular: She has history of hypertension but no known OR heart failure DVT or pulmonary embolus. She thinks she had an exercise stress test approximately 2004 which was unremarkable. She has had varicose vein stripping. Respiratory: She smoked from age [age] a total of 46 years up to one and half packs per day. She thinks she had PFTs several years ago which were negative. She does not use home oxygen. GI: She has GERD and history of NAFLD. She had colonoscopy 2017 to follow up on a previous one which showed polyps. She had diverticular disease but no new polyps and was told she did not need another colonoscopy for 10 years. She denies disorders otherwise of her liver gallbladder or exocrine pancreas : She had left nephrectomy for renal cell cancer several years ago. She is presumed cancer free. She has OAB and occasional UTI. Neurologic: As per history of present illness Endocrine: She was diagnosed with DM 2 at age 43. She has hyperlipidemia but no known thyroid disease Hematology/oncology: She had left kidney cancer with nephrectomy as per above. She had cervical cancer with curative hysterectomy in the past. She denies other internal malignancies or blood disorders Psychiatric: She has anxiety and depression Musk skeletal: She has rheumatoid arthritis. She had spinal fusion surgery 2006. She has had bilateral carpal tunnel surgery and right total shoulder replacement. - Constitutional Vitals: Temp Pulse Resp BP Pulse Ox 98.0 F 85 16 153/73 95 04/02/17 06:42 04/02/17 11:25 04/02/17 06:42 04/02/17 06:42 04/02/17 11:25 Exam: Gen.: She is a well-developed well-nourished female who appears in no acute distress at present time HEENT: Head is atraumatic and normocephalic. Eyes: EOMI. There is no scleral icterus. Mouth: Mucosa is moist. Neck: Supple and nontender. There is no thyromegaly or adenopathy noted. Heart: Regular without murmurs gallops or ectopics Lungs: No wheezes or crackles are heard. Abdomen: Soft and nontender. Exam is limited because she is in the seated position. Extremities: There is no cyanosis edema or clubbing noted. Dorsalis pedis and posttibial pulses are trace to 1+ palpable bilaterally. Her feet are warm to touch. She has enlargement of the MCP joints bilaterally with ulnar deviation of the fingers. Neurologic: Mental status: She is talkative and a good historian. Cranial nerves: Smile is symmetric. Forehead wrinkles bilaterally. Tongue protrudes midline. EOMI. Motor: There is no pronator drift. Ankle flexion and extension strength against resistance is 4/5 on the left and 5/5 on the right Cerebellar: Finger to nose is intact bilaterally. Skin: Warm and dry Internal Med - H&P Results - Labs CBC & Chem 7: 04/02/17 04:28 04/02/17 04:28 Labs: Short CBC 04/02/17 Range/Units 04:28 WBC 6.2 (4.3-11.1) K/mcL Hgb 12.8 (11.5-15.4) g/dL Hct 39.5 (35.3-44.9) % Plt Count 261 (140-400) K/mcL Neutrophils # 3.5 (1.6-8.9) K/mcL BMP 04/02/17 04:28 Sodium 141 Potassium 4.2 Chloride 104 Carbon Dioxide 27 BUN 30 H Creatinine 0.80 Glucose 169 H Calcium 9.5
[2017-04-02] MEDS: *HR* Warfarin 5 MG TABLET PO SCH (18:43)
[2017-04-02] MEDS: tiZANidine 4 MG TABLET PO SCH (19:58)
[2017-04-03] MEDS: Acetaminophen 325 MG TABLET PO PRN (00:59)
[2017-04-03] MEDS: Insulin LISPRO 300 UNITS/3 ML VIAL SQ SCH ×4 (07:48→20:09)
[2017-04-03] MEDS: levETIRAcetam 250 MG TABLET PO SCH ×2 (08:50→20:13)
[2017-04-03] MEDS: amLODIPine 5 MG TABLET PO SCH (08:51)
[2017-04-03] MEDS: Sennosides 8.6 MG TABLET PO SCH (08:51)
[2017-04-03] MEDS: Venlafaxine XR (24 HR) 37.5 MG CAP.ER.24H PO SCH (08:51)
[2017-04-03] MEDS: Famotidine 20 MG TABLET PO SCH (08:51)
[2017-04-03] MEDS: diazePAM 5 MG TABLET PO SCH ×2 (08:51→20:13)
[2017-04-03] MEDS: BuPROPion XL (24 HR) 150 MG TABLET PO SCH (08:51)
[2017-04-03] MEDS: Aspirin Enteric Coated 81 MG Tablet PO SCH (08:51)
[2017-04-03] MEDS: Cholecalciferol (D-3) 1,000 UNIT TABLET PO SCH (08:51)
[2017-04-03] MEDS: Cortisporin *EAR*Susp 10 ML BOTTLE LEFT EAR SCH ×4 (08:52→20:13)
[2017-04-03] MEDS: (Linagliptin [Tradjenta] 5 MG) PO SCH (08:52)
--- NOTE | 2017-04-03 11:03 | Internal Med Progress Note ---
Date of Encounter: 04/03/17 Time of Encounter: 10:55 - Assessment and plan (1) Seizures Current Visit: No Status: Acute Assessment and plan: April 03. Continue Keppra and Valium with decreasing doses of bupropion. (2) CVA (cerebral vascular accident) Current Visit: No Status: Acute Assessment and plan: April 03. Continue aspirin, Coumadin, and therapy intervention Qualifiers: CVA mechanism: embolism Precerebral and cerebral artery: middle cerebral artery Laterality of affected vessel: right Qualified Code(s): I63.411 - Cerebral infarction due to embolism of right middle cerebral artery (3) Azotemia Current Visit: Yes Status: Acute Assessment and plan: April 03. Remain off Hyzaar and NSAIDs. Continue losartan and Norvasc. (4) Hypertension Current Visit: No Status: Acute Assessment and plan: April 03. Remain off Hyzaar and continue losartan and Norvasc. Qualifiers: Hypertension type: essential hypertension Qualified Code(s): I10 - Essential (primary) hypertension (5) Atrial fibrillation Current Visit: No Status: Chronic Assessment and plan: April 03. Continue Coumadin and monitor pro times. Qualifiers: Atrial fibrillation type: paroxysmal Qualified Code(s): I48.0 - Paroxysmal atrial fibrillation - Subjective Interval history: April 03. She has no new complaints and feels well overall. - Constitutional Vitals: Temp Pulse Resp BP Pulse Ox 97.4 F L 71 16 150/68 96 04/03/17 07:44 04/03/17 07:44 04/03/17 07:44 04/03/17 07:44 04/03/17 07:44 Exam: She is lying in bed resting comfortably. Her affect is bright and cheerful. I reviewed her medications and lab results. Internal Medicine: Result - Labs CBC & Chem 7: 04/02/17 04:28 04/02/17 04:28 - ABG Interpretation ABG results: PT/INR, D-dimer PT 32.4 Seconds (9.4-12.1) H 04/02/17 04:28 Consult Discharge Plan - Plan Referrals: Nick Andrews MD [Primary Care Provider] - 1 week
[2017-04-03] MEDS: *HR* Warfarin 5 MG TABLET PO SCH (17:46)
[2017-04-03] MEDS: tiZANidine 4 MG TABLET PO SCH (20:14)
[2017-04-04] MEDS: Acetaminophen 325 MG TABLET PO PRN (00:12)
[2017-04-04] MEDS: Insulin LISPRO 300 UNITS/3 ML VIAL SQ SCH ×4 (07:51→20:38)
[2017-04-04] MEDS: amLODIPine 5 MG TABLET PO SCH ×2 (09:52→12:22)
[2017-04-04] MEDS: Sennosides 8.6 MG TABLET PO SCH (09:52)
[2017-04-04] MEDS: levETIRAcetam 250 MG TABLET PO SCH ×2 (09:52→20:37)
[2017-04-04] MEDS: Cholecalciferol (D-3) 1,000 UNIT TABLET PO SCH (09:52)
[2017-04-04] MEDS: Venlafaxine XR (24 HR) 37.5 MG CAP.ER.24H PO SCH (09:52)
[2017-04-04] MEDS: Famotidine 20 MG TABLET PO SCH (09:52)
[2017-04-04] MEDS: BuPROPion XL (24 HR) 150 MG TABLET PO SCH (09:53)
[2017-04-04] MEDS: Aspirin Enteric Coated 81 MG Tablet PO SCH (09:53)
[2017-04-04] MEDS: (Linagliptin [Tradjenta] 5 MG) PO SCH (09:53)
[2017-04-04] MEDS: diazePAM 5 MG TABLET PO SCH ×2 (09:53→20:37)
[2017-04-04] MEDS: Cortisporin *EAR*Susp 10 ML BOTTLE LEFT EAR SCH ×4 (09:53→20:39)
--- NOTE | 2017-04-04 11:35 | Internal Med Progress Note ---
Date of Encounter: 04/04/17 Time of Encounter: 11:25 - Assessment and plan (1) Seizures Current Visit: No Status: Acute Assessment and plan: April 03. Continue Keppra and Valium with decreasing doses of bupropion. (2) CVA (cerebral vascular accident) Current Visit: No Status: Acute Assessment and plan: April 03. Continue aspirin, Coumadin, and therapy intervention Qualifiers: CVA mechanism: embolism Precerebral and cerebral artery: middle cerebral artery Laterality of affected vessel: right Qualified Code(s): I63.411 - Cerebral infarction due to embolism of right middle cerebral artery (3) Azotemia Current Visit: Yes Status: Acute Assessment and plan: April 03. Remain off Hyzaar and NSAIDs. Continue losartan and Norvasc. April 04. Recheck labs in a.m. (4) Hypertension Current Visit: No Status: Acute Assessment and plan: April 03. Remain off Hyzaar and continue losartan and Norvasc. April 04. Will continue losartan at present dose. We will decrease Norvasc to 5 mg daily and start Toprol-XL to lessen edema. Qualifiers: Hypertension type: essential hypertension Qualified Code(s): I10 - Essential (primary) hypertension (5) Atrial fibrillation Current Visit: No Status: Chronic Assessment and plan: April 03. Continue Coumadin and monitor pro times. Qualifiers: Atrial fibrillation type: paroxysmal Qualified Code(s): I48.0 - Paroxysmal atrial fibrillation - Subjective Interval history: April 03. She has no new complaints and feels well overall. April 04. She has no new complaints. - Constitutional Vitals: Temp Pulse Resp BP Pulse Ox 97.7 F 74 16 166/76 94 04/04/17 07:13 04/04/17 07:13 04/04/17 07:13 04/04/17 07:13 04/04/17 07:13 Exam: She is sitting in a chair at bedside resting comfortably. She is wearing CLAUDY hose. Her affect is bright and cheerful. I reviewed her medications and lab results. Internal Medicine: Result - Labs CBC & Chem 7: 04/02/17 04:28 04/02/17 04:28 - ABG Interpretation ABG results: PT/INR, D-dimer PT 32.4 Seconds (9.4-12.1) H 10/28/17 04:28 Consult Discharge Plan - Plan Referrals: Nick Andrews MD [Primary Care Provider] - 1 week
[2017-04-04] MEDS: *HR* Warfarin 5 MG TABLET PO SCH (18:04)
[2017-04-04] MEDS: tiZANidine 4 MG TABLET PO SCH (20:37)
[2017-04-05 06:31] LABS: Basophils # 0.1 K/mcL (0.0-0.2); Basophils % 0.8 %; Eosinophils # 0.3 K/mcL (0.0-0.6); Eosinophils % 4.9 %; Hematocrit 36.7 % (35.3-44.9); Immature Granulocytes % 0.2 % (0-4); Lymphocytes # 1.7 K/mcL (0.6-4.6); Lymphocytes % 29.2 %; Mean Corpuscular HGB Conc 32.7 g/dL (31.6-35.5); Mean Corpuscular Hemoglobin 27.5 pg (28.0-33.3); Mean Platelet Volume 11.1 fL (9.4-12.4); Monocytes # 0.5 K/mcL (0.0-1.3); Monocytes % 8.1 %; Neutrophils # 3.4 K/mcL (1.6-8.9); Platelet Count 243 K/mcL (140-400); Red Blood Count 4.37 M/mcL (3.82-4.97); Red Cell Distribution Width 13.2 % (11.5-14.5); Segmented Neutrophils % 56.8 %
[2017-04-05 06:39] LABS: INR 3.1; Prothrombin Time 34.1 Seconds (9.4-12.1)
[2017-04-05 06:50] LABS: BUN/Creatinine Ratio 29 (6-26); Blood Urea Nitrogen 20 mg/dL (7-20); Calcium 9.4 mg/dL (8.6-10.8); Carbon Dioxide 28 mEq/L (19-29); Chloride 107 mEq/L (98-109); Glucose 153 mg/dL (70-99); Osmolality,Calculated 300 (280-300); Potassium 4.1 mEq/L (3.5-4.5); Sodium 142 mEq/L (136-145); eGFR For African Americans > 60 (> 60); eGFR For Non-African Americans > 60 (> 60)
[2017-04-05] MEDS: Insulin LISPRO 300 UNITS/3 ML VIAL SQ SCH ×4 (07:43→22:00)
[2017-04-05] MEDS: (Linagliptin [Tradjenta] 5 MG) PO SCH (07:45)
[2017-04-05] MEDS: Sennosides 8.6 MG TABLET PO SCH (07:45)
[2017-04-05] MEDS: amLODIPine 5 MG TABLET PO SCH (07:59)
[2017-04-05] MEDS: Venlafaxine XR (24 HR) 37.5 MG CAP.ER.24H PO SCH (07:59)
[2017-04-05] MEDS: Cholecalciferol (D-3) 1,000 UNIT TABLET PO SCH (07:59)
[2017-04-05] MEDS: levETIRAcetam 250 MG TABLET PO SCH ×2 (07:59→20:53)
[2017-04-05] MEDS: diazePAM 5 MG TABLET PO SCH ×2 (08:00→20:52)
[2017-04-05] MEDS: Famotidine 20 MG TABLET PO SCH (08:00)
[2017-04-05] MEDS: BuPROPion XL (24 HR) 150 MG TABLET PO SCH (08:00)
[2017-04-05] MEDS: Metoprolol XL (24 HR) Succ 25 MG TAB.ER.24H PO SCH (08:01)
[2017-04-05] MEDS: Aspirin Enteric Coated 81 MG Tablet PO SCH (08:01)
[2017-04-05] MEDS: Cortisporin *EAR*Susp 10 ML BOTTLE LEFT EAR SCH ×4 (10:54→20:52)
[2017-04-05] MEDS: *HR* Warfarin 5 MG TABLET PO SCH (17:01)
[2017-04-05] MEDS: Acetaminophen 325 MG TABLET PO PRN (20:51)
[2017-04-05] MEDS: tiZANidine 4 MG TABLET PO SCH (20:52)
[2017-04-06] MEDS: Insulin LISPRO 300 UNITS/3 ML VIAL SQ SCH ×2 (08:04→12:04)
[2017-04-06] MEDS: Aspirin Enteric Coated 81 MG Tablet PO SCH (08:05)
[2017-04-06] MEDS: Cortisporin *EAR*Susp 10 ML BOTTLE LEFT EAR SCH (08:06)
[2017-04-06] MEDS: Venlafaxine XR (24 HR) 37.5 MG CAP.ER.24H PO SCH (08:07)
[2017-04-06] MEDS: levETIRAcetam 250 MG TABLET PO SCH (08:08)
[2017-04-06] MEDS: Metoprolol XL (24 HR) Succ 25 MG TAB.ER.24H PO SCH (08:08)
[2017-04-06] MEDS: (Linagliptin [Tradjenta] 5 MG) PO SCH (08:09)
[2017-04-06] MEDS: amLODIPine 5 MG TABLET PO SCH (08:09)
[2017-04-06] MEDS: Famotidine 20 MG TABLET PO SCH (08:09)
[2017-04-06] MEDS: BuPROPion XL (24 HR) 150 MG TABLET PO SCH (08:10)
[2017-04-06] MEDS: diazePAM 5 MG TABLET PO SCH (08:10)
[2017-04-06] MEDS: Cholecalciferol (D-3) 1,000 UNIT TABLET PO SCH (08:10)
[2017-04-06] MEDS: Sennosides 8.6 MG TABLET PO SCH (08:10)
[2017-04-06 10:47] VITALS: BP 153/72
--- NOTE | 2017-04-06 11:39 | Discharge Summary ---
Date of Encounter: 04/06/17 Time of Encounter: 11:25 - Discharge Diagnosis (1) CVA (cerebral vascular accident) Priority: Primary Status: Acute Qualifiers: CVA mechanism: embolism Precerebral and cerebral artery: middle cerebral artery Laterality of affected vessel: right Qualified Code(s): I63.411 - Cerebral infarction due to embolism of right middle cerebral artery (2) Seizures Priority: Secondary Status: Acute (3) Azotemia Priority: Secondary Status: Resolved (4) Hypertension Priority: Secondary Status: Chronic Qualifiers: Hypertension type: essential hypertension Qualified Code(s): I10 - Essential (primary) hypertension (5) Atrial fibrillation Priority: Secondary Status: Chronic Qualifiers: Atrial fibrillation type: paroxysmal Qualified Code(s): I48.0 - Paroxysmal atrial fibrillation - Discharge Medications Prescriptions: amLODIPine [Norvasc] 5 mg PO DAILY #30 tablet Losartan Potassium [Cozaar] 100 mg PO DAILY #30 tab Metoprolol XL (24 HR) Succ [Toprol Xl] 25 mg PO DAILY #30 tab.er.24h Home Medications: Albuterol Sulfate [Proair Respiclick] 2 puff IH Q4H PRN 10/24/15 [History] Cholecalciferol (Vitamin D3) [Vitamin D3] 1,000 unit PO DAILY 10/24/15 [History] Sennosides [Senna] 8.6 mg PO DAILY 10/24/15 [History] BuPROPion XL (24 HR) [Wellbutrin Xl] 300 mg PO DAILY 01/26/16 [History] Tizanidine HCl 4 mg PO HS 01/26/16 [History] diazePAM [Valium] 5 mg PO BID #10 tablet 03/10/16 [Rx] Atorvastatin [Lipitor] 40 mg PO HS 10/13/16 [History] Famotidine [Pepcid] 20 mg PO DAILY 10/13/16 [History] Linagliptin [Tradjenta] 5 mg PO DAILY 10/13/16 [History] Oxybutynin [Ditropan] 5 mg PO BID 10/13/16 [History] Tamsulosin HCl [Flomax] 0.4 mg PO DAILY 10/13/16 [History] LevETIRAcetam [Keppra] 1,000 mg PO BID #60 tablet 03/03/17 [Rx] Insulin Degludec [Tresiba Flextouch U-100] 0 unit SQ DAILY 03/29/17 [History] Venlafaxine XR (24 HR) [Effexor XR] 75 mg PO DAILY 03/29/17 [History] Warfarin [Coumadin] 10 mg PO SUTUTHSA 03/29/17 [History] Warfarin [Coumadin] 12.5 mg PO MOWEFR 03/29/17 [History] Acetaminophen [Tylenol] 650 mg PO Q6HR PRN tablet 04/01/17 [Rx] Aspirin Enteric Coated [Aspirin EC] 81 mg PO DAILY tablet. 04/01/17 [Rx] Docusate [Colace] 100 mg PO BID PRN capsule 04/01/17 [Rx] Shahram/Poly/HC *EAR* SUSP [Cortisporin *EAR* Susp] 2 drop LEFT EAR QID bottle [Rx] Losartan Potassium [Cozaar] 100 mg PO DAILY #30 tab 04/06/17 [Rx] Metoprolol XL (24 HR) Succ [Toprol Xl] 25 mg PO DAILY #30 tab.er.24h 04/06/17 [ Rx] amLODIPine [Norvasc] 5 mg PO DAILY #30 tablet 04/06/17 [Rx] Allergies/Adverse Reactions: 3 Allergy/AdvReac Type Severity Reaction Status Date / Time Androgenic Anabolic Steroid Allergy Hives Verified 10/13/16 07:59 aripiprazole [From Abilify] Allergy Hives Verified 10/13/16 07:59 azithromycin [From Zithromax] Allergy Hives Verified 10/13/16 07:59 bisacodyl Allergy Hives Verified 10/13/16 07:59 cephalexin Allergy Hives Verified 10/13/16 07:59 ciprofloxacin [From Cipro] Allergy Hives Verified 10/13/16 07:59 codeine Allergy Hives Verified 10/13/16 07:59 mirtazapine [From Remeron] Allergy Hives Verified 10/13/16 07:59 nitrofurantoin Allergy Hives Verified 10/13/16 07:59 [From Macrobid] penicillamine Allergy Hives Verified 10/13/16 07:59 propranolol [From Inderal LA] Allergy Hives Verified 10/13/16 07:59 Sulfa (Sulfonamide Allergy Hives Verified 10/13/16 07:59 Antibiotics) tramadol [From Ultram] Allergy Hives Verified 10/13/16 07:59 trimethoprim Allergy Hives Verified 10/13/16 07:59 Date of admission: 04/01/17 15:00 Primary care physician: Nick Andrews MD Consults: 04/01/17 16:41 Consult to Occupational Therapy [CONS] Routine Comment: swing Reason for Consult: evaluate, implement, develop plan of care Consult to Physical Therapy [CONS] Routine Comment: swing Reason for Consult: evaluate, implement, and develop plan of care Consult to Engine Lathe Operator [CONS] Routine Reason for SW Consult: discharge planning 04/01/17 17:34 Consult to Engine Lathe Operator [CONS] Routine Reason for SW Consult: discharge planning 04/03/17 14:34 Consult to Speech Therapy [CONS] Routine Comment: Evaluate, develop and implement POC Reason for Consult: s/p TIA/CVA Call Completed: Yes - Patient Status Disposition: Home, Self-Care Functional capacity at discharge: uses cane/walker - Discharge Instructions Follow Up With: Nick Andrews MD [Primary Care Provider] - 1 week - Diet and Activity Activity: as per physical therapy Diet: advance to your usual diet Hospital course: Ms. Gamez is a 66 year old female who was hospitalized at [facility] March 29 after presenting with left side weakness, confusion and near aphasia. MRI of brain showed old infarct right parietal lobe encephalomalacia, laminar necrosis, and glucoses. There was question of tiny foci of acute to subacute infarct in the background of old infarct and right MCA territory. She was started on aspirin 81 mg daily. She continued on Coumadin previously prescribed for paroxysmal defibrillation. Carotid Doppler study showed left proximal ICA with 40-59% stenosis. Echocardiogram report showed LVEF of 60-65% with mild concentric LVH and mild diastolic dysfunction. No thrombus was identified. (Information on echo obtained from discharge summary since no echo report available in patient's medical record.) She made satisfactory progress and was transferred to [facility] swing bed for ongoing therapy needs April 02. Initial orders were written by the [facility] discharging physician. I saw her April 02 and performed the history and physical. She had physical therapy and occupational therapy evaluation with ongoing interventions. She made satisfactory progress. She felt stable for discharge home April 06. Hyzaar was discontinued and she was started on losartan 100 mg daily. Norvasc was reduced to 5 mg daily to lessen edema. She was also given Toprol-XL 25 mg daily. Her PCP can monitor her blood pressure on this new regimen. Her azotemia resolved with DM and creatinine being 20 and 0.68 respectively on April 05. There were no new problems and on April 06 she felt stable for discharge home. She will follow with her PCP Dr. Andrews within 1 week. - Time Spent with Patient Total time spent providing and/or coordinating discharge services: - Constitutional Vitals: Temp Pulse Resp BP Pulse Ox 98.4 F 58 16 153/72 94 04/06/17 10:47 04/06/17 10:47 04/06/17 10:47 04/06/17 10:47 04/06/17 10:47
--- NOTE | 2017-04-06 12:12 | Physician Discharge Referral ---
Home Health/Hosp Referral Info Transfer to: Home Health Attending Provider: Zay Provider in Charge Post Discharge: PCP (Nick Andrews M.D.) - Diagnosis (1) CVA (cerebral vascular accident) Priority: Primary Status: Acute (2) Seizures Priority: Secondary Status: Acute (3) Azotemia Priority: Secondary Status: Resolved (4) Hypertension Priority: Secondary Status: Chronic (5) Atrial fibrillation Priority: Secondary Status: Chronic - Respiratory Orders Smoking Cessation: Smoking cessation has been advised. For more information, call the [place] Tobacco Quit Line at 4-810-JFKK-NOW. - Diet/Nutrition Diet/Nutrition Orders: No Concentrated Sweets - Activity Activity Orders: Ambulate, Walker - Services Needed Following services are medically necessary services: Nursing, Home Health Aide, Physical Therapy, Occupational Therapy - Transfer Medications Prescriptions: amLODIPine [Norvasc] 5 mg PO DAILY #30 tablet Losartan Potassium [Cozaar] 100 mg PO DAILY #30 tab Metoprolol XL (24 HR) Succ [Toprol Xl] 25 mg PO DAILY #30 tab.er.24h Home Medications: Albuterol Sulfate [Proair Respiclick] 2 puff IH Q4H PRN 10/24/15 [History] Cholecalciferol (Vitamin D3) [Vitamin D3] 1,000 unit PO DAILY 10/24/15 [History] Sennosides [Senna] 8.6 mg PO DAILY 10/24/15 [History] BuPROPion XL (24 HR) [Wellbutrin Xl] 300 mg PO DAILY 01/26/16 [History] Tizanidine HCl 4 mg PO HS 01/26/16 [History] diazePAM [Valium] 5 mg PO BID #10 tablet 03/10/16 [Rx] Atorvastatin [Lipitor] 40 mg PO HS 10/13/16 [History] Famotidine [Pepcid] 20 mg PO DAILY 10/13/16 [History] Linagliptin [Tradjenta] 5 mg PO DAILY 10/13/16 [History] Oxybutynin [Ditropan] 5 mg PO BID 10/13/16 [History] Tamsulosin HCl [Flomax] 0.4 mg PO DAILY 10/13/16 [History] LevETIRAcetam [Keppra] 1,000 mg PO BID #60 tablet 03/03/17 [Rx] Insulin Degludec [Tresiba Flextouch U-100] 0 unit SQ DAILY 03/29/17 [History] Venlafaxine XR (24 HR) [Effexor XR] 75 mg PO DAILY 03/29/17 [History] Warfarin [Coumadin] 10 mg PO SUTUTHSA 03/29/17 [History] Warfarin [Coumadin] 12.5 mg PO MOWEFR 03/29/17 [History] Acetaminophen [Tylenol] 650 mg PO Q6HR PRN tablet 04/01/17 [Rx] Aspirin Enteric Coated [Aspirin EC] 81 mg PO DAILY tablet. 04/01/17 [Rx] Docusate [Colace] 100 mg PO BID PRN capsule 04/01/17 [Rx] Shahram/Poly/HC *EAR* SUSP [Cortisporin *EAR* Susp] 2 drop LEFT EAR QID bottle [Rx] Losartan Potassium [Cozaar] 100 mg PO DAILY #30 tab 04/06/17 [Rx] Metoprolol XL (24 HR) Succ [Toprol Xl] 25 mg PO DAILY #30 tab.er.24h 04/06/17 [ Rx] amLODIPine [Norvasc] 5 mg PO DAILY #30 tablet 04/06/17 [Rx] Allergies/Adverse Reactions: 3 Allergy/AdvReac Type Severity Reaction Status Date / Time Androgenic Anabolic Steroid Allergy Hives Verified 10/13/16 07:59 aripiprazole [From Abilify] Allergy Hives Verified 10/13/16 07:59 azithromycin [From Zithromax] Allergy Hives Verified 10/13/16 07:59 bisacodyl Allergy Hives Verified 10/13/16 07:59 cephalexin Allergy Hives Verified 10/13/16 07:59 ciprofloxacin [From Cipro] Allergy Hives Verified 10/13/16 07:59 codeine Allergy Hives Verified 10/13/16 07:59 mirtazapine [From Remeron] Allergy Hives Verified 10/13/16 07:59 nitrofurantoin Allergy Hives Verified 10/13/16 07:59 [From Macrobid] penicillamine Allergy Hives Verified 10/13/16 07:59 propranolol [From Inderal LA] Allergy Hives Verified 10/13/16 07:59 Sulfa (Sulfonamide Allergy Hives Verified 10/13/16 07:59 Antibiotics) tramadol [From Ultram] Allergy Hives Verified 10/13/16 07:59 trimethoprim Allergy Hives Verified 10/13/16 07:59 Certification: Further, I certify that my clinical findings support that this patient is homebound (i.e. absences from home require considerable and taxing effort and are for medical reasons or sabianism services or infrequently or short duration when for other reasons) because: Homebound Reason: Leaving home requires considerable and taxing effort due to condition (Impaired mobility from CVA) Attestation: My signature below is to certify that this patient is under my care and that I, or nurse practitioner, or a physician's research program assistant working with me, has a face-to -face encounter with this patient.
== END 2017-04-06 13:35 | disposition home health service (06) | DRG 57 ==
LOC: INPPIK 15:00 → PREOBSVTOIN 15:54
PROVIDERS: ADMIT Internal Medicine; ATTEND Internal Medicine

== ENCOUNTER 2019-06-07 16:13 | Inpatient (IN) ==
[2019-06-07 16:58] LABS: Basophils # 0.1 K/mcL (0.0-0.2); Basophils % 0.8 %; Eosinophils # 0.1 K/mcL (0.0-0.6); Eosinophils % 1.5 %; Hematocrit 39.4 % (35.3-44.9); Hemoglobin 12.9 g/dL (11.5-15.4); Immature Granulocytes % 0.3 % (0-4); Lymphocytes # 1.7 K/mcL (0.6-4.6); Lymphocytes % 22.2 %; Mean Corpuscular HGB Conc 32.7 g/dL (31.6-35.5); Mean Corpuscular Hemoglobin 27.3 pg (28.0-33.3); Mean Corpuscular Volume 83.5 fL (83.0-100.0); Mean Platelet Volume 10.2 fL (9.4-12.4); Monocytes # 0.7 K/mcL (0.0-1.3); Neutrophils # 5.2 K/mcL (1.6-8.9); Platelet Count 373 K/mcL (140-400); Red Blood Count 4.72 M/mcL (3.82-4.97); Red Cell Distribution Width 13.6 % (11.5-14.5); Segmented Neutrophils % 66.2 %; White Blood Count 7.8 K/mcL (4.3-11.1)
[2019-06-07] MEDS ORDERED: Ipratropium/Albuterol Neb 3 ML IH ONE (17:02)
[2019-06-07 17:13] LABS: Alanine Aminotransferase 13 Units/L (7-52); Albumin 3.6 g/dL (3.5-5.7); Albumin/Globulin Ratio 1.4 (1.1-2.2); Alkaline Phosphatase 86 Units/L (34-104); Aspartate Amino Transferase 18 Units/L (13-39); BUN/Creatinine Ratio 17 (6-26); Bilirubin,Total 0.5 mg/dL (0.3-1.0); Blood Urea Nitrogen 23 mg/dL (8-23); Calcium 9.3 mg/dL (8.6-10.3); Carbon Dioxide 24 mEq/L (23-29); Chloride 101 mEq/L (98-107); Globulin 2.5 g/dL (2.4-3.5); Glucose 238 mg/dL (70-105); Osmolality,Calculated 295 (280-300); Potassium 3.8 mEq/L (3.5-5.1); Sodium 137 mEq/L (136-145); Total Protein 6.1 g/dL (6.4-8.9); eGFR For African Americans 46 (> 60); eGFR For Non-African Americans 38 (> 60)
[2019-06-07 17:16] LABS: Troponin I < 0.03 ng/mL (< 0.04)
[2019-06-07 18:15] LABS: Bilirubin,Urine Negative (Negative); Blood,Urine Negative (Negative); Clarity,Urine Slightly Cloudy (Clear); Glucose,Urine (UA) Normal (Normal); Ketones,Urine Trace mg/dL (Negative); Leukocyte Esterase,Urine Negative (Negative); Nitrite,Urine Negative (Negative); Protein,Urine 30 mg/dL (Neg-Trace); Specific Gravity,Urine 1.025 (1.010-1.025); Urobilinogen,Urine Normal (Normal)
[2019-06-07 18:25] LABS: Color,Urine Dark Yellow (Yellow)
[2019-06-07 18:28] LABS: RBC,Urine 0-3 per hpf (0-3); Squamous Epithelial Cell,Urine Moderate per lpf (None-Few)
[2019-06-07 18:29] LABS: Amorphous Sediment,Urine Few per hpf (Few); Bacteria,Urine Moderate per hpf (None-Few); Granular Casts,Urine Many per lpf (None Seen); Hyaline Casts,Urine Moderate per lpf (None-Few)
[2019-06-07] MEDS ORDERED: cefTRIAXone 1,000 MG in 0.9 % Sodium Chloride Mini Bag 100 ML IVPB ONE (19:54)
[2019-06-07] MEDS ORDERED: 0.9 % Sodium Chloride 1,000 ML IVC SCH (20:00)
[2019-06-07] MEDS ORDERED: NON-FORMULARY MEDICATION 1 EACH EACH (Insulin Aspart [Novolog Flexpen] 5 UNIT) SQ SCH (21:14)
[2019-06-07] MEDS ORDERED: Nitroglycerin 0.4 MG TAB.SUBL SL PRN (21:14)
[2019-06-07] MEDS ORDERED: *HR* Warfarin 10 MG TABLET PO SCH (21:14)
[2019-06-07] MEDS ORDERED: Naloxone 0.4 MG/ML INJ IVP PRN (21:14)
[2019-06-07] MEDS: hydroCHLOROthiazide 25 MG TABLET PO SCH (23:09)
[2019-06-07] MEDS: 0.9 % Sodium Chloride 1,000 ML IVC SCH (23:09)
[2019-06-07] MEDS ORDERED: Dextrose Gel 15 GM/37.5 ML TUBE PO PRN ×2 (23:12)
[2019-06-07] MEDS ORDERED: D5% in Water 1,000 ML IVC PRN (23:12)
[2019-06-07] MEDS ORDERED: *HR* Dextrose 50 % in Water (Syg) 50 ML SYRINGE IVP PRN (23:12)
[2019-06-07] MEDS ORDERED: Insulin DETEMIR 100 UNIT/ML per UNIT SQ SCH (23:30)
[2019-06-07] MEDS: Insulin LISPRO 300 UNITS/3 ML VIAL SQ SCH (23:39)
[2019-06-07] MEDS: Acetaminophen 325 MG TABLET PO PRN (23:56)
[2019-06-08] MEDS: levETIRAcetam 250 MG TABLET PO SCH ×2 (05:56→17:11)
[2019-06-08] MEDS: Acetaminophen 325 MG TABLET PO PRN ×3 (06:00→20:29)
[2019-06-08] MEDS: 0.9 % Sodium Chloride 1,000 ML IVC SCH (07:16)
[2019-06-08 07:28] LABS: INR 1.5; Prothrombin Time 17.3 Seconds (9.4-12.1)
[2019-06-08] MEDS ORDERED: *HR* Dextrose 50 % in Water (Vial) 50 ML VIAL IVP PRN (08:00)
[2019-06-08] MEDS: Insulin LISPRO 300 UNITS/3 ML VIAL SQ SCH ×4 (08:45→20:28)
[2019-06-08] MEDS: amLODIPine 5 MG TABLET PO SCH (08:51)
[2019-06-08] MEDS: (Breo Ellipta 100-25 Mcg Inh) IH SCH (08:51)
[2019-06-08] MEDS: Metoprolol XL (24 HR) Succ 50 MG TAB.ER.24H PO SCH (08:51)
[2019-06-08] MEDS: Isosorbide MONOnitrate (24 HR) 60 MG TAB.ER.24H PO SCH (08:51)
[2019-06-08] MEDS: diazePAM 5 MG TABLET PO SCH (08:51)
[2019-06-08] MEDS: Cholecalciferol (D-3) 1,000 UNIT (25MCG) TABLET PO SCH (08:51)
[2019-06-08] MEDS ORDERED: NON-FORMULARY MEDICATION 1 EACH EACH (Linagliptin [Tradjenta] 5 MG) PO SCH (09:00)
[2019-06-08] MEDS ORDERED: ENOXAPARIN 80 MG SQ SCH (09:00)
[2019-06-08 09:37] LABS: Hematocrit 42.4 % (35.3-44.9); Hemoglobin 13.6 g/dL (11.5-15.4); Mean Corpuscular HGB Conc 32.1 g/dL (31.6-35.5); Mean Corpuscular Hemoglobin 27.3 pg (28.0-33.3); Mean Platelet Volume 10.1 fL (9.4-12.4); Platelet Count 370 K/mcL (140-400); Red Blood Count 4.99 M/mcL (3.82-4.97); Red Cell Distribution Width 13.8 % (11.5-14.5); White Blood Count 5.8 K/mcL (4.3-11.1)
[2019-06-08 09:43] LABS: INR 1.5; Prothrombin Time 17.3 Seconds (9.4-12.1)
[2019-06-08 09:50] LABS: Calcium 9.2 mg/dL (8.6-10.3); Carbon Dioxide 27 mEq/L (23-29); Chloride 104 mEq/L (98-107); Glucose 126 mg/dL (70-105); Potassium 3.7 mEq/L (3.5-5.1); Sodium 141 mEq/L (136-145); eGFR For African Americans > 60 (> 60); eGFR For Non-African Americans > 60 (> 60)
[2019-06-08 10:32] LABS: BUN/Creatinine Ratio 20 (6-26); Blood Urea Nitrogen 17 mg/dL (8-23); Osmolality,Calculated 295 (280-300)
[2019-06-08] MEDS ORDERED: 0.9 % Sodium Chloride 1,000 ML IVC SCH (11:58)
[2019-06-08] MEDS ORDERED: *HR* Warfarin 5 MG TABLET PO ONE (18:00)
[2019-06-08] MEDS ORDERED: Warfarin perPT PO PRN (18:00)
[2019-06-08] MEDS: Insulin DETEMIR 100 UNIT/ML X5UNITS SQ SCH (20:29)
[2019-06-09] MEDS: Acetaminophen 325 MG TABLET PO PRN ×3 (02:35→23:05)
[2019-06-09] MEDS: levETIRAcetam 250 MG TABLET PO SCH ×2 (06:05→16:50)
[2019-06-09 07:28] LABS: Hematocrit 39.4 % (35.3-44.9); Hemoglobin 12.4 g/dL (11.5-15.4); Mean Corpuscular HGB Conc 31.5 g/dL (31.6-35.5); Mean Corpuscular Volume 85.8 fL (83.0-100.0); Mean Platelet Volume 10.3 fL (9.4-12.4); Platelet Count 302 K/mcL (140-400); Red Blood Count 4.59 M/mcL (3.82-4.97); Red Cell Distribution Width 13.7 % (11.5-14.5); White Blood Count 5.3 K/mcL (4.3-11.1)
[2019-06-09 07:36] LABS: INR 1.4; Prothrombin Time 16.3 Seconds (9.4-12.1)
[2019-06-09 07:47] LABS: BUN/Creatinine Ratio 23 (6-26); Blood Urea Nitrogen 17 mg/dL (8-23); Carbon Dioxide 28 mEq/L (23-29); Chloride 105 mEq/L (98-107); Glucose 133 mg/dL (70-105); Osmolality,Calculated 295 (280-300); Potassium 3.8 mEq/L (3.5-5.1); Sodium 141 mEq/L (136-145); eGFR For African Americans > 60 (> 60); eGFR For Non-African Americans > 60 (> 60)
[2019-06-09] MEDS: Cholecalciferol (D-3) 1,000 UNIT (25MCG) TABLET PO SCH (08:10)
[2019-06-09] MEDS: Isosorbide MONOnitrate (24 HR) 60 MG TAB.ER.24H PO SCH (08:10)
[2019-06-09] MEDS: Insulin LISPRO 300 UNITS/3 ML VIAL SQ SCH ×4 (08:11→20:43)
[2019-06-09] MEDS: diazePAM 5 MG TABLET PO SCH (08:11)
[2019-06-09] MEDS: amLODIPine 5 MG TABLET PO SCH (08:11)
[2019-06-09] MEDS: Metoprolol XL (24 HR) Succ 50 MG TAB.ER.24H PO SCH (08:11)
[2019-06-09] MEDS: (Breo Ellipta 100-25 Mcg Inh) IH SCH (08:12)
[2019-06-09 11:31] LABS: Adenovirus Not Detected (Not Detect); Bordetella Pertussis Not Detected (Not Detect); Chlamydophila pneumoniae Not Detected (Not Detect); Coronavirus 229E Not Detected (Not Detect); Coronavirus HKU1 Not Detected (Not Detect); Coronavirus NL63 Not Detected (Not Detect); Coronavirus OC43 Not Detected (Not Detect); Human Metapneumovirus Not Detected (Not Detect); Human Rhinovirus/Enterovirus Not Detected (Not Detect); Influenza A Subtype 2009 H1 Not Detected (Not Detect); Influenza B Not Detected (Not Detect); Mycoplasma pneumoniae Not Detected (Not Detect); Parainfluenza Virus 1 Not Detected (Not Detect); Parainfluenza Virus 2 Not Detected (Not Detect); Parainfluenza Virus 3 Not Detected (Not Detect); Parainfluenza Virus 4 Not Detected (Not Detect); Respiratory Syncytial Virus Not Detected (Not Detect)
[2019-06-09] MEDS: cefTRIAXone 2,000 MG in Water for inj. (sterile) 20 ML IVP SCH (11:58)
[2019-06-09] MEDS ORDERED: *HR* Warfarin 5 MG TABLET PO ONE (18:00)
[2019-06-09] MEDS: Insulin DETEMIR 100 UNIT/ML X5UNITS SQ SCH (20:42)
[2019-06-09 22:57] LABS: BUN/Creatinine Ratio 24 (6-26); Blood Urea Nitrogen 19 mg/dL (8-23); Carbon Dioxide 28 mEq/L (23-29); Chloride 103 mEq/L (98-107); Glucose 198 mg/dL (70-105); Magnesium 1.8 mg/dL (1.6-2.6); Osmolality,Calculated 294 (280-300); Sodium 138 mEq/L (136-145); eGFR For African Americans > 60 (> 60); eGFR For Non-African Americans > 60 (> 60)
[2019-06-10] MEDS: levETIRAcetam 250 MG TABLET PO SCH ×2 (05:16→17:04)
[2019-06-10] MEDS: Acetaminophen 325 MG TABLET PO PRN (05:17)
[2019-06-10 08:02] LABS: Hematocrit 41.3 % (35.3-44.9); Hemoglobin 13.1 g/dL (11.5-15.4); Mean Corpuscular HGB Conc 31.7 g/dL (31.6-35.5); Mean Corpuscular Volume 85.2 fL (83.0-100.0); Mean Platelet Volume 10.6 fL (9.4-12.4); Platelet Count 290 K/mcL (140-400); Red Blood Count 4.85 M/mcL (3.82-4.97); Red Cell Distribution Width 13.5 % (11.5-14.5); White Blood Count 5.2 K/mcL (4.3-11.1)
[2019-06-10 08:13] LABS: INR 1.5; Prothrombin Time 17.5 Seconds (9.4-12.1)
[2019-06-10 08:35] LABS: BUN/Creatinine Ratio 23 (6-26); Blood Urea Nitrogen 16 mg/dL (8-23); Calcium 9.2 mg/dL (8.6-10.3); Carbon Dioxide 30 mEq/L (23-29); Chloride 104 mEq/L (98-107); Glucose 171 mg/dL (70-105); Osmolality,Calculated 297 (280-300); Sodium 141 mEq/L (136-145); eGFR For African Americans > 60 (> 60); eGFR For Non-African Americans > 60 (> 60)
[2019-06-10] MEDS: Insulin LISPRO 300 UNITS/3 ML VIAL SQ SCH ×4 (09:10→19:59)
[2019-06-10] MEDS: cefTRIAXone 2,000 MG in Water for inj. (sterile) 20 ML IVP SCH (09:11)
[2019-06-10] MEDS: hydroCHLOROthiazide 25 MG TABLET PO SCH ×2 (09:12→19:58)
[2019-06-10] MEDS: Cholecalciferol (D-3) 1,000 UNIT (25MCG) TABLET PO SCH (09:12)
[2019-06-10] MEDS: diazePAM 5 MG TABLET PO SCH (09:12)
[2019-06-10] MEDS: amLODIPine 5 MG TABLET PO SCH (09:12)
[2019-06-10] MEDS: Isosorbide MONOnitrate (24 HR) 60 MG TAB.ER.24H PO SCH (09:12)
[2019-06-10] MEDS: Metoprolol XL (24 HR) Succ 50 MG TAB.ER.24H PO SCH (09:12)
[2019-06-10] MEDS: (Breo Ellipta 100-25 Mcg Inh) IH SCH (09:19)
[2019-06-10] MEDS ORDERED: ALPRAZolam 0.25 MG TABLET PO ONE (10:32)
[2019-06-10] MEDS ORDERED: *HR* Warfarin 5 MG TABLET PO ONE (18:00)
[2019-06-10] MEDS: Insulin DETEMIR 100 UNIT/ML X5UNITS SQ SCH (19:59)
[2019-06-11] MEDS: levETIRAcetam 250 MG TABLET PO SCH ×2 (05:36→16:58)
[2019-06-11] MEDS: Acetaminophen 325 MG TABLET PO PRN ×2 (05:39→21:24)
[2019-06-11 07:05] LABS: Hemoglobin 13.4 g/dL (11.5-15.4); Mean Corpuscular HGB Conc 31.9 g/dL (31.6-35.5); Mean Corpuscular Hemoglobin 27.1 pg (28.0-33.3); Mean Platelet Volume 10.3 fL (9.4-12.4); Platelet Count 304 K/mcL (140-400); Red Blood Count 4.94 M/mcL (3.82-4.97); Red Cell Distribution Width 13.6 % (11.5-14.5); White Blood Count 6.8 K/mcL (4.3-11.1)
[2019-06-11 07:12] LABS: INR 1.6
[2019-06-11 07:26] LABS: BUN/Creatinine Ratio 26 (6-26); Blood Urea Nitrogen 22 mg/dL (8-23); Calcium 9.6 mg/dL (8.6-10.3); Carbon Dioxide 31 mEq/L (23-29); Chloride 101 mEq/L (98-107); Glucose 178 mg/dL (70-105); Osmolality,Calculated 296 (280-300); Potassium 3.9 mEq/L (3.5-5.1); Sodium 139 mEq/L (136-145); eGFR For African Americans > 60 (> 60); eGFR For Non-African Americans > 60 (> 60)
[2019-06-11] MEDS: Insulin LISPRO 300 UNITS/3 ML VIAL SQ SCH ×4 (08:36→21:22)
[2019-06-11] MEDS: cefTRIAXone 2,000 MG in Water for inj. (sterile) 20 ML IVP SCH (08:37)
[2019-06-11] MEDS: Isosorbide MONOnitrate (24 HR) 60 MG TAB.ER.24H PO SCH (08:38)
[2019-06-11] MEDS: hydroCHLOROthiazide 25 MG TABLET PO SCH ×2 (08:38→21:22)
[2019-06-11] MEDS: diazePAM 5 MG TABLET PO SCH (08:38)
[2019-06-11] MEDS: Cholecalciferol (D-3) 1,000 UNIT (25MCG) TABLET PO SCH (08:38)
[2019-06-11] MEDS: Metoprolol XL (24 HR) Succ 50 MG TAB.ER.24H PO SCH (08:38)
[2019-06-11] MEDS: amLODIPine 5 MG TABLET PO SCH (08:38)
[2019-06-11] MEDS: (Breo Ellipta 100-25 Mcg Inh) IH SCH (08:39)
[2019-06-11] MEDS ORDERED: *HR* Warfarin 5 MG TABLET PO ONE (18:00)
[2019-06-11] MEDS: Insulin DETEMIR 100 UNIT/ML X5UNITS SQ SCH (21:23)
[2019-06-12] MEDS: Acetaminophen 325 MG TABLET PO PRN (05:55)
[2019-06-12] MEDS: levETIRAcetam 250 MG TABLET PO SCH (05:56)
[2019-06-12 07:29] LABS: Hematocrit 43.2 % (35.3-44.9); Hemoglobin 13.9 g/dL (11.5-15.4); Mean Corpuscular HGB Conc 32.2 g/dL (31.6-35.5); Mean Corpuscular Hemoglobin 27.2 pg (28.0-33.3); Mean Corpuscular Volume 84.5 fL (83.0-100.0); Mean Platelet Volume 10.7 fL (9.4-12.4); Platelet Count 288 K/mcL (140-400); Red Blood Count 5.11 M/mcL (3.82-4.97); Red Cell Distribution Width 13.6 % (11.5-14.5); White Blood Count 5.6 K/mcL (4.3-11.1)
[2019-06-12 07:40] LABS: INR 1.8; Prothrombin Time 20.4 Seconds (9.4-12.1)
[2019-06-12 08:05] LABS: BUN/Creatinine Ratio 29 (6-26); Blood Urea Nitrogen 22 mg/dL (8-23); Calcium 9.6 mg/dL (8.6-10.3); Carbon Dioxide 31 mEq/L (23-29); Chloride 100 mEq/L (98-107); Glucose 180 mg/dL (70-105); Osmolality,Calculated 298 (280-300); Potassium 3.8 mEq/L (3.5-5.1); Sodium 140 mEq/L (136-145); eGFR For African Americans > 60 (> 60); eGFR For Non-African Americans > 60 (> 60)
[2019-06-12] MEDS: Insulin LISPRO 300 UNITS/3 ML VIAL SQ SCH ×2 (09:07→12:21)
[2019-06-12] MEDS: cefTRIAXone 2,000 MG in Water for inj. (sterile) 20 ML IVP SCH (09:08)
[2019-06-12] MEDS: Isosorbide MONOnitrate (24 HR) 60 MG TAB.ER.24H PO SCH (09:10)
[2019-06-12] MEDS: hydroCHLOROthiazide 25 MG TABLET PO SCH (09:10)
[2019-06-12] MEDS: Cholecalciferol (D-3) 1,000 UNIT (25MCG) TABLET PO SCH (09:10)
[2019-06-12] MEDS: Metoprolol XL (24 HR) Succ 50 MG TAB.ER.24H PO SCH (09:10)
[2019-06-12] MEDS: diazePAM 5 MG TABLET PO SCH (09:10)
[2019-06-12] MEDS: amLODIPine 5 MG TABLET PO SCH (09:10)
[2019-06-12] MEDS: (Breo Ellipta 100-25 Mcg Inh) IH SCH (09:11)
[2019-06-12 11:01] VITALS: BP 151/65
[2019-06-12] MEDS ORDERED: *HR* Warfarin 5 MG TABLET PO ONE (18:00)
== END 2019-06-12 14:51 | DRG 690 ==
LOC: INPPIK 16:13 → EMEROOPIK 16:13 → INPPIK 21:19
PROVIDERS: ADMIT Family Medicine; ATTEND Family Medicine

== ENCOUNTER 2019-06-12 13:01 | Inpatient (IN) ==
[2019-06-12] MEDS ORDERED: Dextrose Gel 15 GM/37.5 ML TUBE PO PRN ×2 (16:32)
[2019-06-12] MEDS ORDERED: D5% in Water 1,000 ML IVC PRN (16:32)
[2019-06-12] MEDS ORDERED: *HR* Dextrose 50 % in Water (Vial) 50 ML VIAL IVP PRN (16:32)
[2019-06-12] MEDS ORDERED: Nitroglycerin 0.4 MG TAB.SUBL SL PRN (16:39)
[2019-06-12] MEDS ORDERED: hydroCHLOROthiazide 25 MG TABLET PO SCH (17:00)
[2019-06-12] MEDS: levETIRAcetam 250 MG TABLET PO SCH (17:54)
[2019-06-12] MEDS ORDERED: *HR* Warfarin 5 MG TABLET PO ONE (18:00)
[2019-06-12] MEDS ORDERED: Warfarin perPT PO SCH (18:00)
[2019-06-12] MEDS: Acetaminophen 325 MG TABLET PO PRN (20:18)
[2019-06-12] MEDS: cephALEXin 500 MG CAPSULE PO SCH (20:18)
[2019-06-12] MEDS: Insulin LISPRO 300 UNITS/3 ML VIAL SQ SCH (20:23)
[2019-06-12] MEDS: hydroCHLOROthiazide 25 MG TABLET PO SCH (20:23)
[2019-06-12] MEDS: Insulin DETEMIR 100 UNIT/ML X5UNITS SQ SCH (20:31)
[2019-06-13] MEDS: levETIRAcetam 250 MG TABLET PO SCH ×2 (05:53→17:39)
[2019-06-13] MEDS: Acetaminophen 325 MG TABLET PO PRN ×2 (05:53→20:42)
[2019-06-13 07:33] LABS: INR 1.7; Prothrombin Time 18.8 Seconds (9.4-12.1)
[2019-06-13 07:35] LABS: Activated Partial Thrombo Time 35.9 Seconds (26.0-36.0)
[2019-06-13 07:44] LABS: BUN/Creatinine Ratio 32 (6-26); Blood Urea Nitrogen 26 mg/dL (8-23); Calcium 9.4 mg/dL (8.6-10.3); Carbon Dioxide 30 mEq/L (23-29); Chloride 100 mEq/L (98-107); Glucose 179 mg/dL (70-105); Osmolality,Calculated 295 (280-300); Potassium 3.9 mEq/L (3.5-5.1); Sodium 138 mEq/L (136-145); eGFR For African Americans > 60 (> 60); eGFR For Non-African Americans > 60 (> 60)
[2019-06-13] MEDS: TRADJENTA 5MG PO SCH (07:51)
[2019-06-13] MEDS: BREO ELLIPTA 100/25 IH SCH (07:51)
[2019-06-13 08:01] LABS: Basophils # 0.1 K/mcL (0.0-0.2); Eosinophils # 0.2 K/mcL (0.0-0.6); Eosinophils % 3.7 %; Hematocrit 42.5 % (35.3-44.9); Hemoglobin 13.6 g/dL (11.5-15.4); Immature Granulocytes % 0.2 % (0-4); Lymphocytes # 1.7 K/mcL (0.6-4.6); Lymphocytes % 28.3 %; Mean Corpuscular Volume 84.5 fL (83.0-100.0); Mean Platelet Volume 10.4 fL (9.4-12.4); Monocytes # 0.6 K/mcL (0.0-1.3); Monocytes % 9.9 %; Neutrophils # 3.4 K/mcL (1.6-8.9); Platelet Count 269 K/mcL (140-400); Red Blood Count 5.03 M/mcL (3.82-4.97); Red Cell Distribution Width 13.5 % (11.5-14.5); Segmented Neutrophils % 56.9 %; White Blood Count 5.9 K/mcL (4.3-11.1)
[2019-06-13] MEDS: Insulin LISPRO 300 UNITS/3 ML VIAL SQ SCH ×4 (08:20→20:58)
[2019-06-13] MEDS: Isosorbide MONOnitrate (24 HR) 60 MG TAB.ER.24H PO SCH (08:21)
[2019-06-13] MEDS: hydroCHLOROthiazide 25 MG TABLET PO SCH ×2 (08:21→17:39)
[2019-06-13] MEDS: cephALEXin 500 MG CAPSULE PO SCH ×2 (08:21→20:42)
[2019-06-13] MEDS: tiZANidine 4 MG TABLET PO SCH (08:21)
[2019-06-13] MEDS: amLODIPine 5 MG TABLET PO SCH (08:21)
[2019-06-13] MEDS: Metoprolol XL (24 HR) Succ 50 MG TAB.ER.24H PO SCH (08:22)
[2019-06-13] MEDS: diazePAM 5 MG TABLET PO SCH (08:22)
[2019-06-13] MEDS: Cholecalciferol (D-3) 1,000 UNIT (25MCG) TABLET PO SCH (08:22)
[2019-06-13] MEDS: Warfarin perPT PO SCH (17:44)
[2019-06-13] MEDS ORDERED: *HR* Warfarin 5 MG TABLET PO ONE (18:00)
[2019-06-13] MEDS: Insulin DETEMIR 100 UNIT/ML X5UNITS SQ SCH (20:39)
[2019-06-14] MEDS: levETIRAcetam 250 MG TABLET PO SCH ×2 (05:41→17:34)
[2019-06-14] MEDS: Insulin LISPRO 300 UNITS/3 ML VIAL SQ SCH ×4 (07:46→19:51)
[2019-06-14 08:03] LABS: INR 1.4; Prothrombin Time 15.4 Seconds (9.4-12.1)
[2019-06-14] MEDS: BREO ELLIPTA 100/25 IH SCH (09:02)
[2019-06-14] MEDS: TRADJENTA 5MG PO SCH (09:15)
[2019-06-14] MEDS: diazePAM 5 MG TABLET PO SCH (09:24)
[2019-06-14] MEDS: Isosorbide MONOnitrate (24 HR) 60 MG TAB.ER.24H PO SCH (09:27)
[2019-06-14] MEDS: Metoprolol XL (24 HR) Succ 50 MG TAB.ER.24H PO SCH (09:27)
[2019-06-14] MEDS: hydroCHLOROthiazide 25 MG TABLET PO SCH ×2 (09:29→17:10)
[2019-06-14] MEDS: tiZANidine 4 MG TABLET PO SCH (10:18)
[2019-06-14] MEDS: Cholecalciferol (D-3) 1,000 UNIT (25MCG) TABLET PO SCH (10:18)
[2019-06-14] MEDS: cephALEXin 500 MG CAPSULE PO SCH ×2 (10:18→19:54)
[2019-06-14] MEDS: amLODIPine 5 MG TABLET PO SCH (10:18)
[2019-06-14] MEDS: Warfarin perPT PO SCH (17:32)
[2019-06-14] MEDS ORDERED: *HR* Warfarin 5 MG TABLET PO ONE (18:00)
[2019-06-14] MEDS: Insulin DETEMIR 100 UNIT/ML X5UNITS SQ SCH (19:54)
[2019-06-14] MEDS: Acetaminophen 325 MG TABLET PO PRN (22:24)
[2019-06-15] MEDS: levETIRAcetam 250 MG TABLET PO SCH ×2 (05:02→22:07)
[2019-06-15 06:25] LABS: INR 1.4; Prothrombin Time 15.5 Seconds (9.4-12.1)
[2019-06-15] MEDS: Insulin LISPRO 300 UNITS/3 ML VIAL SQ SCH ×4 (08:45→22:49)
[2019-06-15] MEDS: BREO ELLIPTA 100/25 IH SCH (08:45)
[2019-06-15] MEDS: diazePAM 5 MG TABLET PO SCH (08:46)
[2019-06-15] MEDS: Metoprolol XL (24 HR) Succ 50 MG TAB.ER.24H PO SCH (08:55)
[2019-06-15] MEDS: hydroCHLOROthiazide 25 MG TABLET PO SCH (08:55)
[2019-06-15] MEDS: Isosorbide MONOnitrate (24 HR) 60 MG TAB.ER.24H PO SCH (08:55)
[2019-06-15] MEDS: Cholecalciferol (D-3) 1,000 UNIT (25MCG) TABLET PO SCH (08:56)
[2019-06-15] MEDS: TRADJENTA 5MG PO SCH (08:56)
[2019-06-15] MEDS: cephALEXin 500 MG CAPSULE PO SCH ×2 (08:56→22:07)
[2019-06-15] MEDS: amLODIPine 5 MG TABLET PO SCH (08:56)
[2019-06-15] MEDS: tiZANidine 4 MG TABLET PO SCH (08:56)
[2019-06-15] MEDS ORDERED: *HR* Warfarin 5 MG TABLET PO ONE (18:00)
[2019-06-15] MEDS: Acetaminophen 325 MG TABLET PO PRN (22:06)
[2019-06-15] MEDS: *HR* OxyCODONE/APAP 5/325 TABLET PO PRN (22:49)
[2019-06-15] MEDS: Insulin DETEMIR 100 UNIT/ML X5UNITS SQ SCH (22:50)
[2019-06-16 05:32] LABS: INR 1.5; Prothrombin Time 17.1 Seconds (9.4-12.1)
[2019-06-16] MEDS: hydroCHLOROthiazide 25 MG TABLET PO SCH ×3 (06:35→16:37)
[2019-06-16] MEDS: levETIRAcetam 250 MG TABLET PO SCH ×2 (06:35→16:37)
[2019-06-16] MEDS: *HR* OxyCODONE/APAP 5/325 TABLET PO PRN ×3 (06:36→22:31)
[2019-06-16] MEDS: Warfarin perPT PO SCH ×2 (06:40→16:41)
[2019-06-16] MEDS: amLODIPine 5 MG TABLET PO SCH (09:24)
[2019-06-16] MEDS: tiZANidine 4 MG TABLET PO SCH (09:24)
[2019-06-16] MEDS: cephALEXin 500 MG CAPSULE PO SCH ×2 (09:24→20:12)
[2019-06-16] MEDS: Metoprolol XL (24 HR) Succ 50 MG TAB.ER.24H PO SCH (09:24)
[2019-06-16] MEDS: Cholecalciferol (D-3) 1,000 UNIT (25MCG) TABLET PO SCH (09:24)
[2019-06-16] MEDS: diazePAM 5 MG TABLET PO SCH (09:24)
[2019-06-16] MEDS: Insulin LISPRO 300 UNITS/3 ML VIAL SQ SCH ×4 (09:25→20:13)
[2019-06-16] MEDS: BREO ELLIPTA 100/25 IH SCH (09:25)
[2019-06-16] MEDS: Isosorbide MONOnitrate (24 HR) 60 MG TAB.ER.24H PO SCH (09:25)
[2019-06-16] MEDS: TRADJENTA 5MG PO SCH (09:25)
[2019-06-16] MEDS ORDERED: *HR* HYDROcodone/Acet 5/325 mg TABLET PO PRN (12:44)
[2019-06-16] MEDS ORDERED: *HR* Warfarin 5 MG TABLET PO ONE (18:00)
[2019-06-16] MEDS: Insulin DETEMIR 100 UNIT/ML X5UNITS SQ SCH (20:10)
[2019-06-17] MEDS: *HR* OxyCODONE/APAP 5/325 TABLET PO PRN ×2 (05:36→14:32)
[2019-06-17] MEDS: levETIRAcetam 250 MG TABLET PO SCH ×2 (05:37→17:07)
[2019-06-17 07:19] LABS: INR 1.9; Prothrombin Time 21.3 Seconds (9.4-12.1)
[2019-06-17] MEDS: Insulin LISPRO 300 UNITS/3 ML VIAL SQ SCH ×4 (08:27→20:57)
[2019-06-17] MEDS: amLODIPine 5 MG TABLET PO SCH (08:29)
[2019-06-17] MEDS: Metoprolol XL (24 HR) Succ 50 MG TAB.ER.24H PO SCH (08:29)
[2019-06-17] MEDS: cephALEXin 500 MG CAPSULE PO SCH ×2 (08:29→20:57)
[2019-06-17] MEDS: diazePAM 5 MG TABLET PO SCH (08:29)
[2019-06-17] MEDS: Isosorbide MONOnitrate (24 HR) 60 MG TAB.ER.24H PO SCH (08:29)
[2019-06-17] MEDS: Cholecalciferol (D-3) 1,000 UNIT (25MCG) TABLET PO SCH (08:29)
[2019-06-17] MEDS: tiZANidine 4 MG TABLET PO SCH (08:29)
[2019-06-17] MEDS: hydroCHLOROthiazide 25 MG TABLET PO SCH ×2 (08:30→17:08)
[2019-06-17] MEDS: BREO ELLIPTA 100/25 IH SCH (08:31)
[2019-06-17] MEDS: TRADJENTA 5MG PO SCH (08:31)
[2019-06-17] MEDS: Warfarin perPT PO SCH (17:10)
[2019-06-17] MEDS ORDERED: *HR* Warfarin 5 MG TABLET PO ONE ×2 (18:00)
[2019-06-17] MEDS ORDERED: Methyl Salicylate/Menthol 57 APPL/57 GM TUBE TP PRN (18:25)
[2019-06-17] MEDS: Insulin DETEMIR 100 UNIT/ML X5UNITS SQ SCH (20:57)
[2019-06-18] MEDS: levETIRAcetam 250 MG TABLET PO SCH ×2 (05:16→17:58)
[2019-06-18] MEDS: *HR* OxyCODONE/APAP 5/325 TABLET PO PRN (05:16)
[2019-06-18 06:35] VITALS: BP 175/80
[2019-06-18] MEDS: BREO ELLIPTA 100/25 IH SCH (08:12)
[2019-06-18] MEDS: TRADJENTA 5MG PO SCH (08:12)
[2019-06-18] MEDS: tiZANidine 4 MG TABLET PO SCH (09:01)
[2019-06-18] MEDS: Isosorbide MONOnitrate (24 HR) 60 MG TAB.ER.24H PO SCH (09:01)
[2019-06-18] MEDS: Cholecalciferol (D-3) 1,000 UNIT (25MCG) TABLET PO SCH (09:01)
[2019-06-18] MEDS: diazePAM 5 MG TABLET PO SCH (09:01)
[2019-06-18] MEDS: hydroCHLOROthiazide 25 MG TABLET PO SCH ×2 (09:01→16:57)
[2019-06-18] MEDS: cephALEXin 500 MG CAPSULE PO SCH (09:01)
[2019-06-18] MEDS: Metoprolol XL (24 HR) Succ 50 MG TAB.ER.24H PO SCH (09:01)
[2019-06-18] MEDS: amLODIPine 5 MG TABLET PO SCH (09:01)
[2019-06-18] MEDS: Insulin LISPRO 300 UNITS/3 ML VIAL SQ SCH ×3 (09:02→16:56)
[2019-06-18] MEDS: Warfarin perPT PO SCH (17:58)
[2019-06-18] MEDS ORDERED: *HR* Warfarin 5 MG TABLET PO ONE (18:00)
== END 2019-06-18 18:05 | disposition home or self-care (01) | DRG 194 ==
LOC: INPPIK 15:05
PROVIDERS: ADMIT Family Medicine; ATTEND Family Medicine

== ENCOUNTER 2019-06-19 06:41 | Observation (INO) ==
[2019-06-19 07:08] LABS: Basophils # 0.1 K/mcL (0.0-0.2); Eosinophils # 0.1 K/mcL (0.0-0.6); Eosinophils % 1.8 %; Hematocrit 46.9 % (35.3-44.9); Hemoglobin 15.4 g/dL (11.5-15.4); Immature Granulocytes % 0.3 % (0-4); Lymphocytes # 1.5 K/mcL (0.6-4.6); Lymphocytes % 21.9 %; Mean Corpuscular HGB Conc 32.8 g/dL (31.6-35.5); Mean Corpuscular Hemoglobin 27.1 pg (28.0-33.3); Mean Corpuscular Volume 82.6 fL (83.0-100.0); Mean Platelet Volume 10.4 fL (9.4-12.4); Monocytes # 0.5 K/mcL (0.0-1.3); Neutrophils # 4.5 K/mcL (1.6-8.9); Platelet Count 225 K/mcL (140-400); Red Blood Count 5.68 M/mcL (3.82-4.97); Red Cell Distribution Width 13.3 % (11.5-14.5); White Blood Count 6.7 K/mcL (4.3-11.1)
[2019-06-19 07:16] LABS: Prothrombin Time 22.2 Seconds (9.4-12.1)
[2019-06-19 07:18] LABS: Activated Partial Thrombo Time 39.2 Seconds (26.0-36.0)
[2019-06-19 07:27] LABS: Alanine Aminotransferase 17 Units/L (7-52); Albumin/Globulin Ratio 1.4 (1.1-2.2); Alkaline Phosphatase 108 Units/L (34-104); Aspartate Amino Transferase 18 Units/L (13-39); BUN/Creatinine Ratio 29 (6-26); Bilirubin,Total 0.5 mg/dL (0.3-1.0); Blood Urea Nitrogen 23 mg/dL (8-23); Calcium 9.8 mg/dL (8.6-10.3); Carbon Dioxide 30 mEq/L (23-29); Chloride 95 mEq/L (98-107); Globulin 2.9 g/dL (2.4-3.5); Glucose 287 mg/dL (70-105); Osmolality,Calculated 294 (280-300); Potassium 3.7 mEq/L (3.5-5.1); Sodium 135 mEq/L (136-145); Total Protein 6.9 g/dL (6.4-8.9); eGFR For African Americans > 60 (> 60); eGFR For Non-African Americans > 60 (> 60)
[2019-06-19] MEDS ORDERED: Ondansetron 4 MG/2 ML VIAL IVP ONE (07:41)
[2019-06-19] MEDS ORDERED: Morphine Sulfate 2 MG/ML SYRINGE IVP ONE (07:43)
[2019-06-19] MEDS: 0.9 % Sodium Chloride 1,000 ML IVC SCH ×3 (07:47→23:30)
[2019-06-19] MEDS ORDERED: *HR* Labetalol 20 MG/4 ML SYRINGE IVP ONE (08:19)
[2019-06-19] MEDS ORDERED: amLODIPine 5 MG TABLET PO ONE (08:20)
[2019-06-19] MEDS ORDERED: hydroCHLOROthiazide 25 MG TABLET PO ONE (08:20)
[2019-06-19] MEDS ORDERED: Metoprolol XL (24 HR) Succ 50 MG TAB.ER.24H PO ONE (08:20)
[2019-06-19 08:25] LABS: Bilirubin,Urine Negative (Negative); Blood,Urine Trace-intact (Negative); Clarity,Urine Cloudy (Clear); Color,Urine Yellow (Yellow); Glucose,Urine (UA) 250 mg/dL (Normal); Ketones,Urine Negative (Negative); Leukocyte Esterase,Urine Small (Negative); Nitrite,Urine Negative (Negative); Protein,Urine >=300 mg/dL (Neg-Trace); Specific Gravity,Urine 1.025 (1.010-1.025); Urobilinogen,Urine Normal (Normal)
[2019-06-19 08:34] LABS: RBC,Urine 0-3 per hpf (0-3); Squamous Epithelial Cell,Urine Moderate per lpf (None-Few); WBC,Urine TNTC per hpf (0-3)
[2019-06-19 08:35] LABS: Bacteria,Urine Moderate per hpf (None-Few); Mucus,Urine Few per lpf (Few)
[2019-06-19] MEDS ORDERED: Naloxone 0.4 MG/ML INJ IVP PRN (09:03)
[2019-06-19] MEDS ORDERED: Ondansetron 4 MG/2 ML VIAL IVP PRN (09:03)
[2019-06-19] MEDS ORDERED: Dextrose Gel 15 GM/37.5 ML TUBE PO PRN ×2 (09:07)
[2019-06-19] MEDS ORDERED: *HR* Dextrose 50 % in Water (Syg) 50 ML SYRINGE IVP PRN (09:07)
[2019-06-19] MEDS ORDERED: D5% in Water 1,000 ML IVC PRN (09:07)
[2019-06-19] MEDS: Insulin LISPRO 300 UNITS/3 ML VIAL SQ SCH ×2 (13:31→16:30)
[2019-06-19] MEDS: *HR* HYDROcodone/Acet 5/325 mg TABLET PO PRN ×2 (15:16→23:44)
[2019-06-19] MEDS: levETIRAcetam 250 MG TABLET PO SCH (18:13)
[2019-06-19] MEDS ORDERED: Insulin DETEMIR 100 UNIT/ML X5UNITS SQ SCH (21:00)
[2019-06-19] MEDS ORDERED: hydroCHLOROthiazide 25 MG TABLET PO SCH (21:00)
[2019-06-20 04:58] LABS: Hematocrit 42.7 % (35.3-44.9); Hemoglobin 13.7 g/dL (11.5-15.4); Mean Corpuscular HGB Conc 32.1 g/dL (31.6-35.5); Mean Corpuscular Hemoglobin 27.1 pg (28.0-33.3); Mean Corpuscular Volume 84.4 fL (83.0-100.0); Mean Platelet Volume 10.6 fL (9.4-12.4); Platelet Count 200 K/mcL (140-400); Red Blood Count 5.06 M/mcL (3.82-4.97); Red Cell Distribution Width 13.3 % (11.5-14.5); White Blood Count 6.3 K/mcL (4.3-11.1)
[2019-06-20] MEDS: levETIRAcetam 250 MG TABLET PO SCH ×2 (05:07→17:00)
[2019-06-20 05:12] LABS: BUN/Creatinine Ratio 29 (6-26); Blood Urea Nitrogen 19 mg/dL (8-23); Calcium 9.2 mg/dL (8.6-10.3); Carbon Dioxide 32 mEq/L (23-29); Chloride 103 mEq/L (98-107); Glucose 120 mg/dL (70-105); Osmolality,Calculated 295 (280-300); Potassium 3.9 mEq/L (3.5-5.1); Sodium 141 mEq/L (136-145); eGFR For African Americans > 60 (> 60); eGFR For Non-African Americans > 60 (> 60)
[2019-06-20] MEDS: 0.9 % Sodium Chloride 1,000 ML IVC SCH (07:45)
[2019-06-20] MEDS: *HR* HYDROcodone/Acet 5/325 mg TABLET PO PRN ×3 (07:52→23:30)
[2019-06-20] MEDS: amLODIPine 5 MG TABLET PO SCH (07:52)
[2019-06-20] MEDS: tiZANidine 4 MG TABLET PO SCH (07:53)
[2019-06-20] MEDS: Insulin LISPRO 300 UNITS/3 ML VIAL SQ SCH ×3 (07:53→16:08)
[2019-06-20] MEDS ORDERED: Warfarin perPT PO PRN (18:00)
[2019-06-20] MEDS ORDERED: *HR* Warfarin 5 MG TABLET PO ONE (18:00)
[2019-06-20] MEDS: Insulin DETEMIR 100 UNIT/ML X5UNITS SQ SCH (21:06)
[2019-06-21] MEDS: levETIRAcetam 250 MG TABLET PO SCH ×2 (06:32→16:34)
[2019-06-21] MEDS: *HR* HYDROcodone/Acet 5/325 mg TABLET PO PRN ×3 (06:34→20:36)
[2019-06-21 06:43] LABS: Prothrombin Time 22.9 Seconds (9.4-12.1)
[2019-06-21] MEDS: Insulin LISPRO 300 UNITS/3 ML VIAL SQ SCH ×3 (07:35→16:35)
[2019-06-21] MEDS: tiZANidine 4 MG TABLET PO SCH (08:15)
[2019-06-21] MEDS: hydroCHLOROthiazide 25 MG TABLET PO SCH (08:16)
[2019-06-21] MEDS: amLODIPine 5 MG TABLET PO SCH (08:16)
[2019-06-21] MEDS: Metoprolol XL (24 HR) Succ 50 MG TAB.ER.24H PO SCH (08:21)
[2019-06-21 10:41] LABS: Hematocrit 43.9 % (35.3-44.9); Mean Corpuscular HGB Conc 31.9 g/dL (31.6-35.5); Mean Corpuscular Hemoglobin 27.1 pg (28.0-33.3); Mean Corpuscular Volume 85.1 fL (83.0-100.0); Mean Platelet Volume 10.5 fL (9.4-12.4); Platelet Count 218 K/mcL (140-400); Red Blood Count 5.16 M/mcL (3.82-4.97); Red Cell Distribution Width 13.4 % (11.5-14.5); White Blood Count 8.6 K/mcL (4.3-11.1)
[2019-06-21 11:02] LABS: BUN/Creatinine Ratio 20 (6-26); Blood Urea Nitrogen 18 mg/dL (8-23); Calcium 9.2 mg/dL (8.6-10.3); Carbon Dioxide 28 mEq/L (23-29); Chloride 97 mEq/L (98-107); Glucose 261 mg/dL (70-105); Osmolality,Calculated 289 (280-300); Potassium 4.6 mEq/L (3.5-5.1); Sodium 134 mEq/L (136-145); eGFR For African Americans > 60 (> 60); eGFR For Non-African Americans > 60 (> 60)
[2019-06-21] MEDS ORDERED: *HR* Warfarin 5 MG TABLET PO ONE (18:00)
[2019-06-21] MEDS: Insulin DETEMIR 100 UNIT/ML X5UNITS SQ SCH (20:38)
[2019-06-22] MEDS: *HR* HYDROcodone/Acet 5/325 mg TABLET PO PRN ×2 (05:53→20:12)
[2019-06-22] MEDS: levETIRAcetam 250 MG TABLET PO SCH ×2 (05:53→16:35)
[2019-06-22 06:29] LABS: Hematocrit 43.3 % (35.3-44.9); Hemoglobin 13.9 g/dL (11.5-15.4); Mean Corpuscular HGB Conc 32.1 g/dL (31.6-35.5); Mean Corpuscular Hemoglobin 26.9 pg (28.0-33.3); Mean Corpuscular Volume 83.9 fL (83.0-100.0); Mean Platelet Volume 10.8 fL (9.4-12.4); Platelet Count 209 K/mcL (140-400); Red Blood Count 5.16 M/mcL (3.82-4.97); Red Cell Distribution Width 13.2 % (11.5-14.5)
[2019-06-22 06:54] LABS: BUN/Creatinine Ratio 29 (6-26); Blood Urea Nitrogen 22 mg/dL (8-23); Calcium 9.3 mg/dL (8.6-10.3); Carbon Dioxide 30 mEq/L (23-29); Chloride 99 mEq/L (98-107); Glucose 224 mg/dL (70-105); Osmolality,Calculated 296 (280-300); Potassium 3.9 mEq/L (3.5-5.1); Sodium 138 mEq/L (136-145); eGFR For African Americans > 60 (> 60); eGFR For Non-African Americans > 60 (> 60)
[2019-06-22] MEDS: tiZANidine 4 MG TABLET PO SCH (08:17)
[2019-06-22] MEDS: Insulin LISPRO 300 UNITS/3 ML VIAL SQ SCH ×3 (08:17→16:34)
[2019-06-22] MEDS: Metoprolol XL (24 HR) Succ 50 MG TAB.ER.24H PO SCH (08:17)
[2019-06-22] MEDS: amLODIPine 5 MG TABLET PO SCH (08:18)
[2019-06-22] MEDS: hydroCHLOROthiazide 25 MG TABLET PO SCH (08:18)
[2019-06-22] MEDS ORDERED: *HR* Warfarin 5 MG TABLET PO ONE (18:00)
[2019-06-22] MEDS: Insulin DETEMIR 100 UNIT/ML X5UNITS SQ SCH (20:13)
[2019-06-23] MEDS: levETIRAcetam 250 MG TABLET PO SCH (05:25)
[2019-06-23] MEDS: *HR* HYDROcodone/Acet 5/325 mg TABLET PO PRN (05:26)
[2019-06-23 07:00] VITALS: BP 144/62
[2019-06-23] MEDS: tiZANidine 4 MG TABLET PO SCH (08:34)
[2019-06-23] MEDS: hydroCHLOROthiazide 25 MG TABLET PO SCH (08:34)
[2019-06-23] MEDS: Metoprolol XL (24 HR) Succ 50 MG TAB.ER.24H PO SCH (08:34)
[2019-06-23] MEDS: Insulin LISPRO 300 UNITS/3 ML VIAL SQ SCH ×2 (08:34→12:01)
[2019-06-23] MEDS: amLODIPine 5 MG TABLET PO SCH (08:34)
[2019-06-23 10:30] LABS: Hematocrit 43.1 % (35.3-44.9); Hemoglobin 13.8 g/dL (11.5-15.4); Mean Corpuscular Hemoglobin 27.1 pg (28.0-33.3); Mean Corpuscular Volume 84.5 fL (83.0-100.0); Platelet Count 207 K/mcL (140-400); Red Cell Distribution Width 13.2 % (11.5-14.5); White Blood Count 6.8 K/mcL (4.3-11.1)
[2019-06-23 10:35] LABS: INR 1.7; Prothrombin Time 19.6 Seconds (9.4-12.1)
[2019-06-23 10:48] LABS: BUN/Creatinine Ratio 27 (6-26); Blood Urea Nitrogen 26 mg/dL (8-23); Calcium 9.2 mg/dL (8.6-10.3); Carbon Dioxide 32 mEq/L (23-29); Chloride 100 mEq/L (98-107); Glucose 169 mg/dL (70-105); Osmolality,Calculated 295 (280-300); Potassium 4.1 mEq/L (3.5-5.1); Sodium 138 mEq/L (136-145); eGFR For African Americans > 60 (> 60); eGFR For Non-African Americans 58 (> 60)
== END 2019-06-23 14:39 ==
LOC: INPPIK 06:41 → EMEROOPIK 06:41 → INPPIK 10:45
PROVIDERS: ADMIT Internal Medicine; ATTEND Internal Medicine

== ENCOUNTER 2021-01-05 13:22 | Observation (INO) ==
[2021-01-05] MEDS ORDERED: 0.9 % Sodium Chloride 1,000 ML IVC ONE (13:24)
[2021-01-05 13:46] LABS: Basophils % 0.4 %; Eosinophils # 0.1 K/mcL (0.0-0.6); Eosinophils % 1.3 %; Hematocrit 36.5 % (35.3-44.9); Hemoglobin 11.6 g/dL (11.5-15.4); Immature Granulocytes % 0.3 % (0-4); Lymphocytes # 1.3 K/mcL (0.6-4.6); Lymphocytes % 12.6 %; Mean Corpuscular HGB Conc 31.8 g/dL (31.6-35.5); Mean Corpuscular Volume 84.9 fL (83.0-100.0); Monocytes # 0.7 K/mcL (0.0-1.3); Monocytes % 7.1 %; Neutrophils # 8.1 K/mcL (1.6-8.9); Platelet Count 251 K/mcL (140-400); Red Cell Distribution Width 14.1 % (11.5-14.5); Segmented Neutrophils % 78.3 %; White Blood Count 10.3 K/mcL (4.3-11.1)
[2021-01-05 14:10] LABS: Troponin I < 0.03 ng/mL (< 0.04)
[2021-01-05 14:11] LABS: Alanine Aminotransferase 9 Units/L (7-52); Albumin 3.4 g/dL (3.5-5.7); Albumin/Globulin Ratio 1.4 (1.1-2.2); Alkaline Phosphatase 108 Units/L (34-104); Amylase 22 Units/L (29-103); Aspartate Amino Transferase 12 Units/L (13-39); BUN/Creatinine Ratio 18 (6-26); Bilirubin,Direct 0.1 mg/dL (0.0-0.2); Bilirubin,Indirect 0.4 mg/dL (0.0-1.0); Bilirubin,Total 0.5 mg/dL (0.3-1.0); Blood Urea Nitrogen 19 mg/dL (8-23); Carbon Dioxide 25 mEq/L (23-29); Chloride 102 mEq/L (98-107); Globulin 2.5 g/dL (2.4-3.5); Glucose 168 mg/dL (70-105); Lipase 24 Units/L (11-82); Osmolality,Calculated 288 (280-300); Potassium 4.1 mEq/L (3.5-5.1); Sodium 136 mEq/L (136-145); Total Protein 5.9 g/dL (6.4-8.9); eGFR For African Americans > 60 (> 60); eGFR For Non-African Americans 53 (> 60)
[2021-01-05] MEDS ORDERED: Ondansetron 4 MG/2 ML VIAL IVP PRN (15:25)
[2021-01-05] MEDS ORDERED: Naloxone 0.4 MG/ML INJ IVP PRN (15:25)
[2021-01-05] MEDS ORDERED: *HR* Dextrose 50 % in Water (Vial) 50 ML VIAL IVP PRN (15:40)
[2021-01-05] MEDS ORDERED: D5% in Water 1,000 ML IVC PRN (15:40)
[2021-01-05] MEDS ORDERED: Dextrose Gel 15 GM/37.5 ML TUBE PO PRN ×2 (15:40)
[2021-01-05] MEDS ORDERED: *HR* OxyCODONE Immed Rel 5 MG TABLET PO PRN (15:45)
[2021-01-05] MEDS ORDERED: tiZANidine 4 MG TABLET PO PRN (15:45)
[2021-01-05] MEDS: 0.9 % Sodium Chloride 1,000 ML IVC SCH (16:22)
[2021-01-05] MEDS: Acetaminophen 325 MG TABLET PO PRN ×2 (16:23→23:41)
[2021-01-05] MEDS: Insulin LISPRO 300 UNITS/3 ML VIAL SUBQ SCH ×2 (16:41→20:21)
[2021-01-05] MEDS ORDERED: Albuterol 2.5 MG/3 ML NEBULIZER IH PRN (17:54)
[2021-01-05] MEDS: levETIRAcetam 250 MG TABLET PO SCH (20:21)
[2021-01-05] MEDS: Apixaban 5 MG TABLET PO SCH (20:22)
[2021-01-05] MEDS: Metoprolol XL (24 HR) Succ 50 MG TAB.ER.24H PO SCH (21:19)
[2021-01-06 00:20] LABS: Adenovirus F 40/41 PCR Not detected (Not detect); Astrovirus PCR Not detected (Not detect); C.difficile Toxin A/B Gene PCR Not detected (Not detect); Campylobacter by PCR Not detected (Not detect); Cryptosporidium by PCR Not detected (Not detect); Cyclospora cayetanensis PCR Not detected (Not detect); E. coli O157 by PCR Not detected (Not detect); Entamoeba histolytica PCR Not detected (Not detect); Enteroaggregative E.coli(EAEC) Not detected (Not detect); Enteropathogenic E.coli(EPEC) Not detected (Not detect); Enterotoxigenic E.coli (ETEC) Not detected (Not detect); Giardia lamblia PCR Not detected (Not detect); Norovirus GI/GII PCR Not detected (Not detect); Plesiomonas shigelloides PCR Not detected (Not detect); Rotavirus A PCR Not detected (Not detect); Salmonella PCR Not detected (Not detect); Sapovirus PCR Not detected (Not detect); Shig/EnteroinvasiveE coli EIEC Not detected (Not detect); Shigalike tox-prod E coli STEC Not detected (Not detect); Vibrio PCR Not detected (Not detect); Vibrio cholerae PCR Not detected (Not detect); Yersinia enterocolitica PCR Not detected (Not detect)
[2021-01-06] MEDS: 0.9 % Sodium Chloride 1,000 ML IVC SCH ×2 (02:48→09:36)
[2021-01-06] MEDS: Acetaminophen 325 MG TABLET PO PRN ×2 (05:56→22:22)
[2021-01-06 07:08] LABS: Basophils % 0.6 %; Eosinophils # 0.2 K/mcL (0.0-0.6); Eosinophils % 3.3 %; Hematocrit 38.2 % (35.3-44.9); Hemoglobin 12.1 g/dL (11.5-15.4); Immature Granulocytes % 0.4 % (0-4); Lymphocytes # 1.8 K/mcL (0.6-4.6); Lymphocytes % 25.2 %; Mean Corpuscular HGB Conc 31.7 g/dL (31.6-35.5); Mean Corpuscular Hemoglobin 27.1 pg (28.0-33.3); Mean Corpuscular Volume 85.5 fL (83.0-100.0); Mean Platelet Volume 10.1 fL (9.4-12.4); Monocytes # 0.6 K/mcL (0.0-1.3); Monocytes % 9.1 %; Neutrophils # 4.3 K/mcL (1.6-8.9); Platelet Count 236 K/mcL (140-400); Red Blood Count 4.47 M/mcL (3.82-4.97); Red Cell Distribution Width 13.9 % (11.5-14.5); Segmented Neutrophils % 61.4 %
[2021-01-06 07:25] LABS: BUN/Creatinine Ratio 18 (6-26); Blood Urea Nitrogen 14 mg/dL (8-23); Calcium 8.8 mg/dL (8.6-10.3); Carbon Dioxide 27 mEq/L (23-29); Chloride 104 mEq/L (98-107); Glucose 132 mg/dL (70-105); Osmolality,Calculated 290 (280-300); Sodium 139 mEq/L (136-145); eGFR For African Americans > 60 (> 60); eGFR For Non-African Americans > 60 (> 60)
[2021-01-06] MEDS: levETIRAcetam 250 MG TABLET PO SCH ×2 (07:59→20:43)
[2021-01-06] MEDS: Metoprolol XL (24 HR) Succ 50 MG TAB.ER.24H PO SCH (08:01)
[2021-01-06] MEDS: Apixaban 5 MG TABLET PO SCH ×2 (08:01→20:43)
[2021-01-06] MEDS: Insulin LISPRO 300 UNITS/3 ML VIAL SUBQ SCH ×4 (08:02→20:45)
[2021-01-06] MEDS ORDERED: Isosorbide MONOnitrate (24 HR) 60 MG TAB.ER.24H PO SCH (09:00)
[2021-01-06] MEDS ORDERED: Aspirin 81 MG TAB.CHEW PO SCH (09:00)
[2021-01-06] MEDS ORDERED: (Mirabegron [Myrbetriq] 50 MG Tab.Er.24h) PO SCH (09:00)
[2021-01-06] MEDS ORDERED: lisinopriL 20 MG TABLET PO SCH (09:00)
[2021-01-06] MEDS ORDERED: amLODIPine 5 MG TABLET PO SCH (09:00)
[2021-01-06] MEDS ORDERED: *HR* Metformin 500 MG TABLET PO SCH (21:00)
[2021-01-06] MEDS ORDERED: Simethicone 80 MG TAB.CHEW PO PRN (23:50)
[2021-01-07 00:25] LABS: Basophils # 0.1 K/mcL (0.0-0.2); Basophils % 0.8 %; Eosinophils # 0.3 K/mcL (0.0-0.6); Eosinophils % 3.5 %; Hematocrit 38.3 % (35.3-44.9); Hemoglobin 12.3 g/dL (11.5-15.4); Immature Granulocytes % 0.3 % (0-4); Lymphocytes # 1.9 K/mcL (0.6-4.6); Lymphocytes % 24.2 %; Mean Corpuscular HGB Conc 32.1 g/dL (31.6-35.5); Mean Corpuscular Hemoglobin 27.3 pg (28.0-33.3); Mean Corpuscular Volume 85.1 fL (83.0-100.0); Monocytes # 0.8 K/mcL (0.0-1.3); Monocytes % 10.3 %; Neutrophils # 4.7 K/mcL (1.6-8.9); Platelet Count 244 K/mcL (140-400); Segmented Neutrophils % 60.9 %; White Blood Count 7.7 K/mcL (4.3-11.1)
[2021-01-07 00:42] LABS: BUN/Creatinine Ratio 19 (6-26); Blood Urea Nitrogen 22 mg/dL (8-23); Calcium 9.3 mg/dL (8.6-10.3); Carbon Dioxide 26 mEq/L (23-29); Chloride 100 mEq/L (98-107); Glucose 251 mg/dL (70-105); Osmolality,Calculated 290 (280-300); Potassium 4.5 mEq/L (3.5-5.1); Sodium 134 mEq/L (136-145); eGFR For African Americans 56 (> 60); eGFR For Non-African Americans 46 (> 60)
[2021-01-07 00:44] LABS: Troponin I < 0.03 ng/mL (< 0.04)
[2021-01-07] MEDS ORDERED: Acetaminophen IV 500 MG/50 ML BAG IVPB ONE ×2 (01:40→02:00)
[2021-01-07] MEDS ORDERED: Acetaminophen IV 1,000 MG/100 ML BAG IVPB ONE (01:52)
[2021-01-07] MEDS ORDERED: Isovue-370 500 ML BOTTLE IVP ONE (02:03)
[2021-01-07] MEDS ORDERED: levETIRAcetam 1,000 MG in 0.9 % Sodium Chloride 100 ML IVPB ONE (02:15)
[2021-01-07 02:48] VITALS: BP 193/67; PULSE 64; RESP 12; TEMP 98; O2SAT 96
[2021-01-07] MEDS ORDERED: Insulin DETEMIR 100 UNIT/ML X5UNITS SUBQ SCH (09:00)
[2021-01-07] MEDS ORDERED: hydroCHLOROthiazide 25 MG TABLET PO SCH (09:00)
== END 2021-01-07 03:42 | disposition short-term general hospital (02) ==
LOC: EMEROOPIK 13:22 → INPPIK 13:22
PROVIDERS: ADMIT Family Medicine; ATTEND Family Medicine